=== PATIENT | female | born 1970 | race Caucasian/White ===

== ENCOUNTER 2017-09-20 13:51 | Emergency (ER) | payer BC ==
[~2017-09-20] VITALS: Ht 154.9 cm; Wt 81.0 kg
[~2017-09-20 13:51] MED LIST: ACAI500C2; ATOR10TA82 PO; GLUCPOW41 PO; LEVO1TAB PO; LUTE6CAP; MULTCAP42 PO; NIAC500T8 PO; OMEG10007 PO; RIZA10TA18 PO; RIZA10TA19 PO; UBIQ1CAP8
[2017-09-20 13:53] VITALS: TEMP 36.9; Ht 154.9 cm; Wt 81.0 kg
[2017-09-20] MEDS ORDERED: SODIUM CHLORIDE 0.9% 1000ML 1,000 ML IV STA (14:09)
--- NOTE | 2017-09-20 14:19 | EMERGENCY ROOM VISIT NOTE ---
History First contact with patient: 13:57 Chief Complaint: FLANK PAIN Stated Complaint: PAIN IN RT FLANK KIDNEY STONE History of Present Illness The patient is a 47 year old female who presents to the Emergency Room with complaints of severe right flank pain which began yesterday morning. The patient states she was awoken at approximately 7:30 yesterday morning with extraordinary pain. She states she was fighting to stay conscious due to the pain, and did have vomiting. She states the pain was worse on the right flank, and did radiate to the right lower abdomen. She states this episode lasted for approximately 45 minutes to one hour, then spontaneously improved. The patient states the rest of the day, she was uncomfortable, but the pain was much better. She denies any changes in urinating or bowel movements. She states her bowel movements it seems slightly different than normal. She did note that through the pain, she felt as if she would feel better if she did have a bowel movement, but that was not the case. She describes the pain as sharp and acute , but now reports pain 3/10. She does not have a history of kidney stones, but states her does. She is concerned that this could be the problem. The patient denies any dysuria, urinary hesitancy, or urinary frequency. She denies any blood in the urine. She denies any fever, chills, nausea or vomiting with the exception of during the pain, dizziness, or other concerning symptoms. Review of Systems A complete 10 point review of systems was reviewed with the patient with pertinent positives and negatives as per history of present illness. All else were negative. Past Medical/Surgical History Medical Problems: (1) Hyperlipidemia (2) Hypothyroidism (3) Migraines Family History Diabetes mellitus FH: gallbladder disease FH: heart disease FH: lung disease FHx: cancer Hypertension Social History Smoking Status: Never Smoker Smokeless Tobacco Use: No Alcohol Use: none Drug Use: none Marital Status: Housing Status: lives with family Occupation Status: employed Current/Historical Medications Scheduled Acai ([place]) (Acai Laboy), 1,000 DAILY Atorvastatin (Lipitor), 10 MG PO DAILY Nviomvspiux-Hxrzggrfskj-Oxsbdn (Glucosamine & Chrondroiti), Unknown Dose PO BID Levothyroxine Sodium (Levothyroxine Sodium), 125 MCG PO DAILY Lutein (Lutein), DAILY Multiple Vitamin (Multivitamins), 1 CAP PO BID Rizatriptan Benzoate (Maxalt), 10 MG PO PRB/UD Tamsulosin Hcl (Flomax), 0.4 MG PO QD Ubiquinol (Ubiquinol), 100 MG PO DAILY Scheduled PRN Ondasetron Odt (Zofran Odt), 4 MG SL Q6H PRN for Nausea Oxycodone Ir (Roxicodone Ir), 1 TAB PO Q4H PRN for Pain Allergies None Physical Exam Vital Signs Date Time Temp Pulse Resp B/P (MAP) Pulse Ox O2 Delivery O2 Flow Rate FiO2 09/20/17 16:47 80 16 128/74 97 09/20/17 14:34 72 18 116/78 98 Room Air 09/20/17 13:53 36.9 96 18 126/81 97 Room Air Physical Exam VITALS: Vitals are noted on the nurse's note and reviewed by myself. Vital signs stable. GENERAL: This is a 47-year-old white female, in no acute distress, nondiaphoretic, well-developed well-nourished. SKIN: The skin was without rashes, erythema, edema, or bruising. There is no tenting of the skin. Capillary reflex less than 2 seconds. HEAD: Normocephalic atraumatic. NECK: Supple without nuchal rigidity. No lymphadenopathy. No thyromegaly. Cervical spine is nontender. No JVD. HEART: Regular rate and rhythm without murmurs gallops or rubs. LUNGS: Clear to auscultation bilaterally without wheezes, rales or rhonchi. No dullness to percussion. No retractions or accessory muscle use. ABDOMEN: Positive bowel sounds x 4. Normal tympanic percussion. Tenderness noted suprapubically, worse on the right. The patient does have some low right flank pain, but no left flank pain. Soft, without masses or organomegaly. Garcia sign negative. No guarding or rebound tenderness. MUSCULOSKELETAL: No muscle atrophy, erythema, or edema noted. Full range of motion without joint tenderness in all extremities. No tenderness to palpation. Normal gait. Strength 5/5 throughout. NEURO: Patient was alert and oriented to person place and time. Normal sensation to light and sharp touch. No focal neurological deficits. Medical Decision & Procedures ER Provider Diagnostic Interpretation: CBC showed mild leukocytosis of 12,000. Initial urinalysis was positive for 2+ blood, leukocytes trace, white blood cells, red blood cells, greater than 30 epithelial cells, and 1+ bacteria. Positive for calcium oxalate crystals. Repeat urinalysis was negative for bacteria, leukocyte esterase, white blood cells, and had only 5-10 epithelial cells. Renal function was without significant electrolyte or hepatic abnormalities. ABD/PELVIS WITHOUT FOR STONE HISTORY: 47 years-old Female right flank pain acute right-sided flank pain with concern for kidney stones COMPARISON: None available TECHNIQUE: Multiple axial CT images of the abdomen and pelvis were obtained without contrast. A dose lowering technique was used consistent with the principals of ISELA. FINDINGS: The lung bases are generally clear. No pneumoperitoneum or pneumatosis. Imaged inferior cardiac chambers are unremarkable. The liver, gallbladder, spleen, pancreas and adrenal glands are unremarkable. There is a 4 x 2 x 4 mm calculus of the right proximal ureter proximally 1.5 cm distal to the ureteropelvic junction the level of L3 which causes mild hydroureteronephrosis. The left kidney and left ureter are unremarkable. Urinary bladder is within normal limits. Fibroid uterus noted with a pedunculated or subserosal fibroid seen in the left fundal uterus measuring 3.2 x 4.5 cm. Follicular changes of the ovaries are noted. There are focal bullous of the pelvis. Abdominal aorta is normal in course and caliber. No bulky adenopathy. There is no bowel obstruction or focal bowel wall thickening identified. The appendix measures 6 mm, however appears noninflamed. Patient obesity noted. The bones appear intact. IMPRESSION: 1. 4 x 2 x 4 mm calculus of the proximal right ureter at the level of L3 causes mild hydroureteronephrosis. 2. Fibroid uterus. The above report was generated using voice recognition software. It may contain grammatical, syntax or spelling errors. Electronically signed by: Steve Buenrostro M.D. 09/20/2017 3:23 PM Dictated Date/Time: 09/20/2017 3:17 PM Laboratory Results 09/20/17 14:26 Red Blood Count 4.60, Mean Corpuscular Volume 89.8, Mean Corpuscular Hemoglobin 30.0, Mean Corpuscular Hemoglobin Concent 33.4, Mean Platelet Volume 9.7, Neutrophils (%) (Auto) 59.8, Lymphocytes (%) (Auto) 30.8, Monocytes (%) (Auto) 6.7, Eosinophils (%) (Auto) 1.9, Basophils (%) (Auto) 0.3, Neutrophils # (Auto) 7.37, Lymphocytes # (Auto) 3.80, Monocytes # (Auto) 0.82, Eosinophils # (Auto) 0.24, Basophils # (Auto) 0.04 09/20/17 14:26 Test 09/20/17 14:26 White Blood Count 12.33 K/uL (4.8-10.8) Red Blood Count 4.60 M/uL (4.2-5.4) Hemoglobin 13.8 g/dL (12.0-16.0) Hematocrit 41.3 % (37-47) Mean Corpuscular Volume 89.8 fL (80-100) Mean Corpuscular Hemoglobin 30.0 pg (25-34) Mean Corpuscular Hemoglobin Concent 33.4 g/dl (32-36) Platelet Count 278 K/uL (130-400) Mean Platelet Volume 9.7 fL (7.4-10.4) Neutrophils (%) (Auto) 59.8 % Lymphocytes (%) (Auto) 30.8 % Monocytes (%) (Auto) 6.7 % Eosinophils (%) (Auto) 1.9 % Basophils (%) (Auto) 0.3 % Neutrophils # (Auto) 7.37 K/uL (1.4-6.5) Lymphocytes # (Auto) 3.80 K/uL (1.2-3.4) Monocytes # (Auto) 0.82 K/uL (0.11-0.59) Eosinophils # (Auto) 0.24 K/uL (0-0.5) Basophils # (Auto) 0.04 K/uL (0-0.2) RDW Standard Deviation 47.1 fL (36.4-46.3) RDW Coefficient of Variation 14.4 % (11.5-14.5) Immature Granulocyte % (Auto) 0.5 % Immature Granulocyte # (Auto) 0.06 K/uL (0.00-0.02) Urine Color YELLOW Urine Appearance CLOUDY (CLEAR) Urine pH 5.5 (4.5-7.5) Urine Specific [place] 1.025 (1.000-1.030) Urine Protein NEG (NEG) Urine Glucose (UA) NEG (NEG) Urine Ketones NEG (NEG) Urine Occult Blood 2+ (NEG) Urine Nitrite NEG (NEG) Urine Bilirubin NEG (NEG) Urine Urobilinogen NEG (NEG) Urine Leukocyte Esterase TRACE (NEG) Urine WBC (Auto) 5-10 /hpf (0-5) Urine RBC (Auto) 0-4 /hpf (0-4) Urine Hyaline Casts (Auto) 5-10 /lpf (0-5) Urine Epithelial Cells (Auto) >30 /lpf (0-5) Urine Bacteria (Auto) 1+ (NEG) Urine Crystals CALCIUM OXALATE (NONE Anion Gap 10.0 mmol/L (3-11) Est Creatinine Clear Calc Drug Dose 97.9 ml/min Estimated GFR () 119.6 Estimated GFR (Non- 103.2 BUN/Creatinine Ratio 20.5 (10-20) Calcium Level 8.5 mg/dl (8.5-10.1) Medications Administered Medications (Trade) Dose Ordered Sig/Eliezer Route Start Time Stop Time Status Last Admin Dose Admin Sodium Chloride 1,000 ml @ 999 mls/hr Q1H1M STAT IV 09/20/17 14:09 09/20/17 15:09 DC 09/20/17 14:34 999 MLS/HR Medical Decision The patient was seen and evaluated as above. She presented today complaining of severe, colicky right flank pain. The patient states the pain at this time is not severe, but she has been experiencing intermittent episodes of extraordinary pain. Labs, urinalysis, and imaging studies were concerning for nephrolithiasis. There was a 4 mm ureteral stone noted on CT scan. Initial urinalysis was concerning for possible infection, but repeat urinalysis was without these concerning findings. While in the ED, the patient was given 1 L normal saline solution bolus. I did offer pain medication and she declines. I discussed the he findings of all testing with the patient and her at bedside. I discussed proper management of kidney stones. The patient verbalizes understanding, and states that while she does not feel that she will use pain medication or Flomax, she will take these prescriptions in the case that she may need them. The case was discussed with Dr. Campbell who was in agreement with the assessment and plan. Discharge instructions were reviewed and the patient was discharged home in good condition. Differential diagnosis includes ureteral stone, nephrolithiasis, hydronephrosis , pyelonephritis, UTI, malignancy, and others [place] Drug Monitoring Program Search Results: patient reviewed within database Drug Monitoring Findings: No concerning findings noted Medication Reconcilliation Current Medication List: was personally reviewed by me Blood Pressure Screening Patient's blood pressure: Normal blood pressure Impression Primary Impression: Ureteral calculi Departure Information Dispostion Home / Self-Care Condition GOOD Prescriptions Ondasetron Odt (ZOFRAN ODT) 4 Mg Tab 4 MG SL Q6H Y for Nausea, #6 TAB Prov: Justine Lugo PA-C 09/20/17 Tamsulosin Hcl (FLOMAX) 0.4 Mg Cap 0.4 MG PO QD for 6 Days, #6 CAP Prov: Justine Lugo PA-C 09/20/17 Oxycodone Ir (Roxicodone Ir) 5 Mg Tab 1 TAB PO Q4H Y for Pain, #15 TAB For Initial Treatment Prov: Justine Lguo PA-C 09/20/17 Referrals No Doctor, Assigned (PCP) Shiv Smallwood MD Patient Instructions ED Stone Renal W Colic, Kidney Stones Prevent, My [facility] Additional Instructions You have been treated in the Emergency Department today for a Kidney Stone ( Nephrolithiasis). You have been prescribed OxyIR to be used for pain control. This is a narcotic medication. You cannot drive or consume alcohol while on this medicine. This medicine should only be used for pain that cannot be controlled with over-the- counter pain medicines. You have been prescribed Zofran to be used for any nausea or vomiting. Take as prescribed. You have been prescribed Flomax 0.4 mg to be taken ONCE daily. This medicine has been prescribed as it can help relax the smooth muscles of the urinary tract increasing transit time of the kidney stone. For pain control, you can use the following [id number] medicines (if >12 yo): Ibuprofen(Motrin, Advil) may be used for fever or pain. Use 600mg every six hours as needed. Take with food. Avoid using more than 2400mg in a 24 hour period. Do not use 2400mg per day for more than three consecutive days without physician direction. Prolonged inappropriate use can lead to stomach upset or ulcers. (AND/OR) Acetaminophen(Tylenol) may be used for fever or pain. Use 1000mg every six hours as needed. Avoid using more than 3000mg in a 24 hour period. You have been provided a strainer and specimen collection cup. You should strain your urine to collect any passed stones. Your stones can be placed into the specimen cup and taken to your Urologist for further evaluation. You have been provided the contact information for the on-call Urologist. You should contact the Urologist's office if no improvement in 2-3 days to establish a follow-up appointment from today's Emergency Department visit. Please follow up with your PCP and went to 2 days for recheck and further evaluation. Return to the Emergency Department if your symptoms persist despite the treatment plan outlined above or if you develop the following symptoms: intractable pain, fever, chills, or large amounts of blood in your urine.
[2017-09-20 14:38] LABS: BASO % 0.3 %; BASO ABS # 0.04 K/uL (0-0.2); COMPLETE YES; EOS % 1.9 %; HEMATOCRIT 41.3 % (37-47); IG% 0.5 %; LYMPH % 30.8 %; MEAN CELL VOLUME 89.8 fL (80-100); MEAN CORPUSCULAR HGB CONC 33.4 g/dl (32-36); MEAN PLATELET VOLUME 9.7 fL (7.4-10.4); MONO % 6.7 %; NEUT % 59.8 %; PLATELET COUNT 278 K/uL (130-400); WHITE BLOOD COUNT 12.33 K/uL (4.8-10.8)
[2017-09-20 14:40] LABS: MANUAL MICROSCOPIC REQUIRED? NO; REVIEW REQ? YES; URINE APPEARANCE CLOUDY (CLEAR); URINE BILIRUBIN NEG (NEG); URINE COLOR YELLOW; URINE EPITHELIAL CELL AUTO >30 /lpf (0-5); URINE NITRITE NEG (NEG); URINE PH 5.5 (4.5-7.5); URINE SPECIFIC GRAVITY 1.025 (1.000-1.030); UROBILINOGEN NEG (NEG); ZZUR CULT IF INDIC CLEAN CATCH YES
[2017-09-20 15:03] LABS: BLOOD UREA NITROGEN 14 mg/dl (7-18); BUN/CREATININE RATIO 20.5 (10-20); CALCIUM 8.5 mg/dl (8.5-10.1); CARBON DIOXIDE 20 mmol/L (21-32); CHLORIDE 107 mmol/L (98-107); CREATININE 0.67 mg/dl (0.60-1.20); GLUCOSE 80 mg/dl (70-99); SODIUM 137 mmol/L (136-145)
--- NOTE | 2017-09-20 15:24 | DIAGNOSTIC IMAGING REPORT ---
ABD/PELVIS WITHOUT FOR STONE HISTORY: 47 years-old Female right flank pain acute right-sided flank pain with concern for kidney stones COMPARISON: None available TECHNIQUE: Multiple axial CT images of the abdomen and pelvis were obtained without contrast. A dose lowering technique was used consistent with the principals of ALARA. FINDINGS: The lung bases are generally clear. No pneumoperitoneum or pneumatosis. Imaged inferior cardiac chambers are unremarkable. The liver, gallbladder, spleen, pancreas and adrenal glands are unremarkable. There is a 4 x 2 x 4 mm calculus of the right proximal ureter proximally 1.5 cm distal to the ureteropelvic junction the level of L3 which causes mild hydroureteronephrosis. The left kidney and left ureter are unremarkable. Urinary bladder is within normal limits. Fibroid uterus noted with a pedunculated or subserosal fibroid seen in the left fundal uterus measuring 3.2 x 4.5 cm. Follicular changes of the ovaries are noted. There are focal bullous of the pelvis. Abdominal aorta is normal in course and caliber. No bulky adenopathy. There is no bowel obstruction or focal bowel wall thickening identified. The appendix measures 6 mm, however appears noninflamed. Patient obesity noted. The bones appear intact. IMPRESSION: 1. 4 x 2 x 4 mm calculus of the proximal right ureter at the level of L3 causes mild hydroureteronephrosis. 2. Fibroid uterus. The above report was generated using voice recognition software. It may contain grammatical, syntax or spelling errors. Electronically signed by: Steve Buenrostro M.D. 09/20/2017 3:23 PM Dictated Date/Time: 09/20/2017 3:17 PM
[2017-09-20] MEDS ORDERED: TAMS0.4C38 PO (16:03)
[2017-09-20] MEDS ORDERED: ONDA4TAB10 SL (16:03)
[2017-09-20] MEDS ORDERED: OXYC1TAB3 PO (16:03)
[2017-09-20] MEDS ORDERED: LEVO125T5 PO (16:09)
[2017-09-20] MEDS ORDERED: UBIQ1CAP8 PO (16:14)
[2017-09-20 16:27] LABS: URINE APPEARANCE CLEAR (CLEAR); URINE BILIRUBIN NEG (NEG); URINE COLOR YELLOW; URINE NITRITE NEG (NEG); URINE SPECIFIC GRAVITY 1.012 (1.000-1.030); UROBILINOGEN NEG (NEG)
[2017-09-20 16:32] LABS: MANUAL MICROSCOPIC REQUIRED? NO; REVIEW REQ? NO
[2017-09-20 16:47] VITALS: BP 128/74; PULSE 80; O2SAT 97
== END 2017-09-20 16:49 | disposition home or self-care (01) ==
LOC: C.EDB 13:52
DX: N20.1 Calculus of ureter (principal); E78.5 Hyperlipidemia, unspecified; E03.9 Hypothyroidism, unspecified; Z79.899 Other long term (current) drug therapy; Z83.3 Family history of diabetes mellitus; Z83.79 Family history of other diseases of the digestive system; Z82.49 Family history of ischemic heart disease and other diseases of the circulatory system; Z80.9 Family history of malignant neoplasm, unspecified

== ENCOUNTER → 2017-09-30 | Outpatient (CLI) | payer BC ==
[~2017-09-30] MED LIST changes: +LEVO125T5 PO; -LEVO1TAB PO; -NIAC500T8 PO; -OMEG10007 PO; +ONDA4TAB10 SL; +OXYC1TAB3 PO; -RIZA10TA19 PO; -UBIQ1CAP8; +UBIQ1CAP8 PO
--- NOTE | 2017-10-01 13:36 | MAMMOGRAPHY REPORT ---
BILATERAL DIGITAL SCREENING MAMMOGRAM TOMOSYNTHESIS WITH CAD: 09/30/2017 CLINICAL HISTORY: Routine screening. Patient has no complaints. TECHNIQUE: Breast tomosynthesis in addition to standard 2D mammography was performed. Current study was also evaluated with a Computer Aided Detection (CAD) system. COMPARISON: Comparison is made to exams dated: 09/29/2016 mammogram, 09/26/2015 mammogram, 09/25/2014 m ammogram, 08/24/2013 mammogram, 08/22/2012 mammogram, and 08/19/2011 mammogram - [facility]. BREAST COMPOSITION: There are scattered areas of fibroglandular density in both breasts. FINDINGS: No suspicious masses, calcifications, or areas of architectural distortion are noted in ei ther breast. There has been no significant interval change compared to prior exams. IMPRESSION: ACR BI-RADS CATEGORY 1: NEGATIVE There is no mammographic evidence of malignancy. A 1 year screening mammogram is recommended. The pa tient will receive written notification of the results. Approximately 10% of breast cancers are not detected with mammography. A negative mammographic report should not delay biopsy if a clinically suggestive mass is present. Natalya Eugene M.D. ah/:09/30/2017 15:37:59 Printing Manager: Rima DANIEL(Sidra)(M), [facility] letter sent: Normal 1/2 BI-RADS Code: ACR BI-RADS Category 1: Negative
== END | disposition home or self-care (01) ==
LOC: C.MAMM 11:46
PROVIDERS: ATTEND Internal Medicine
DX: Z12.31 Encounter for screening mammogram for malignant neoplasm of breast (principal)

== ENCOUNTER 2017-11-10 16:34 | Emergency (ER) | payer OTHER ==
[~2017-11-10] VITALS: Ht 157.5 cm; Wt 82.5 kg
[~2017-11-10 16:34] MED LIST changes: -CEPH-571 PO; -ONDA4TAB65 PO; -TAMS0.4C38 PO
[2017-11-10 16:43] VITALS: TEMP 36.7; Ht 157.5 cm; Wt 82.5 kg
[2017-11-10] MEDS ORDERED: CEPH-571 PO (18:19)
[2017-11-10] MEDS ORDERED: TAMS0.4C38 PO (18:19)
[2017-11-10] MEDS ORDERED: OXYC1TAB3 PO (18:20)
[2017-11-10] MEDS ORDERED: CEPHALEXIN MONOHYDRATE 250 MG CAP PO ONE (18:30)
[2017-11-10] MEDS ORDERED: TAMSULOSIN HCL 0.4 MG CAP PO ONE (18:30)
[2017-11-10] MEDS ORDERED: ONDA4TAB65 PO (18:46)
[2017-11-10 18:47] VITALS: BP 132/79; PULSE 76; O2SAT 99
--- NOTE | 2017-11-10 19:31 | EMERGENCY ROOM VISIT NOTE ---
History Report prepared by Tahir: Les Orellana Under the Supervision of: Dr. Hubert Campbell D.O. First contact with patient: 16:49 Chief Complaint: KIDNEY STONE Stated Complaint: REF BY DR-KIDNEY STONE History of Present Illness The patient is a 47 year old female who presents to the Emergency Room with complaints of persistent kidney stone since September 19, 2017. She was seen in the ED at that time and had a CT scan that revealed a 4 mm stone in her right ureter. She notes that she was discharged home with the expectation that the stone would pass. She notes her pain went away by September 25, 2017, though has returned this morning. She notes right-side abdominal pain was severe this morning. She also notes nausea and she took anti-nausea medication this morning. She states that went to her PCP this morning and had another CT, which showed a 7mm stone obstructing her right ureter. She was advised to come to the ED for evaluation. Pt denies fevers, chest pain, shortness of breath, vomiting, diarrhea, and pain with urination. Patient currently has absolutely no pain. She is not taking any narcotics. She does have Flomax at home. She also has OxyIR at home which she has not taken. She does not like to take medications. Source of History: patient Onset: September 19, 2017 Position: other (global ) Symptom Intensity: severe Quality: other (kidney stone) Timing: other (persistent) Associated Symptoms: + nausea, + abdominal pain (right-side ), No fevers, No chest pain, No SOB, No vomiting, No diarrhea, No urinary symptoms (no pain with urination) Review of Systems See HPI for pertinent positives & negatives. A total of 10 systems reviewed and were otherwise negative. Past Medical & Surgical Medical Problems: (1) Hyperlipidemia (2) Hypothyroidism (3) Migraines Family History Diabetes mellitus FH: gallbladder disease FH: heart disease FH: lung disease FHx: cancer Hypertension Social History Smoking Status: Never Smoker Alcohol Use: none Drug Use: none Marital Status: Housing Status: lives with family Occupation Status: employed Current/Historical Medications Scheduled Acai ([place]) (Acai Laboy), 1,000 DAILY Atorvastatin (Lipitor), 10 MG PO DAILY Cephalexin (Keflex), 1 CAP PO TID Vkasuznyrqu-Xgmwewjzwws-Xzsrhm (Glucosamine & Chrondroiti), Unknown Dose PO BID Levothyroxine Sodium (Levothyroxine Sodium), 125 MCG PO DAILY Lutein (Lutein), DAILY Multiple Vitamin (Multivitamins), 1 CAP PO BID Ondansetron Hcl (Zofran), 4 MG PO TID Rizatriptan Benzoate (Maxalt), 10 MG PO PRB/UD Tamsulosin Hcl (Flomax), 0.4 MG PO DAILY Ubiquinol (Ubiquinol), 100 MG PO DAILY Scheduled PRN Oxycodone Immediate Rel Tab (Roxicodone Ir), 5 MG PO Q6H PRN for Pain Allergies Coded Allergies: No Known Allergies (Unverified , 11/10/17) Physical Exam Vital Signs Date Time Temp Pulse Resp B/P (MAP) Pulse Ox O2 Delivery O2 Flow Rate FiO2 11/10/17 18:47 76 20 132/79 99 Room Air 11/10/17 16:43 36.7 88 18 137/85 97 Room Air Physical Exam GENERAL: Sitting up in bed, alert, well appearing, well nourished, no distress, non-toxic EYE EXAM: normal conjunctiva. OROPHARYNX: no exudate, no erythema, lips, buccal mucosa, and tongue normal and mucous membranes are moist NECK: supple, no nuchal rigidity, no adenopathy, non-tender LUNGS: Clear to auscultation. Normal chest wall mechanics HEART: no murmurs, S1 normal and S2 normal ABDOMEN: abdomen soft, non-tender, normo-active bowel sounds, no masses, no rebound or guarding. BACK: Back is symmetrical on inspection and there is no deformity, no midline tenderness, no CVA tenderness. SKIN: no rashes and no bruising UPPER EXTREMITIES: upper extremities are grossly normal. LOWER EXTREMITIES: No pitting edema. NEURO EXAM: Normal sensorium, cranial nerves II-XII grossly intact, normal speech, no gross weakness of arms, no gross weakness of legs. Medical Decision & Procedures Laboratory Results Test 11/10/17 17:28 Urine Color YELLOW Urine Appearance CLEAR (CLEAR) Urine pH 5.5 (4.5-7.5) Urine Specific [place] 1.010 (1.000-1.030) Urine Protein NEG (NEG) Urine Glucose (UA) NEG (NEG) Urine Ketones NEG (NEG) Urine Occult Blood 1+ (NEG) Urine Nitrite NEG (NEG) Urine Bilirubin NEG (NEG) Urine Urobilinogen NEG (NEG) Urine Leukocyte Esterase NEG (NEG) Urine WBC (Auto) 1-5 /hpf (0-5) Urine RBC (Auto) 0-4 /hpf (0-4) Urine Hyaline Casts (Auto) 0 /lpf (0-5) Urine Epithelial Cells (Auto) 10-20 /lpf (0-5) Urine Bacteria (Auto) NEG (NEG) Laboratory results per my review. Medications Administered Medications (Trade) Dose Ordered Sig/Eliezer Route Start Time Stop Time Status Last Admin Dose Admin Cephalexin Monohydrate (Keflex Cap) 500 mg NOW ONCE PO 11/10/17 18:30 11/10/17 18:31 DC 11/10/17 18:35 500 MG Tamsulosin HCl (Flomax Cap) 0.4 mg NOW ONCE PO 11/10/17 18:30 18 18:31 DC 11/10/17 18:34 0.4 MG ED Course ED COURSE: Vital signs were reviewed and showed normal. The patients medical record was reviewed The above diagnostic studies were performed and reviewed. ED treatments and interventions as stated above. 165: The patient was evaluated in room C5. A complete history and physical examination was performed. 0: I spoke with Dr. Norris, urologist. We discussed the patients case. He will follow up with her as an outpatient. He recommends Flomax. 1830: Ordered Flomax 0.4 mg PO and Keflex 500 mg PO 1823: Upon reevaluation, I discussed my findings with the patient and she understands and agrees with the treatment plan. Based on the patients age, coexisting illnesses, exam and lab findings the decision to treat as an outpatient was made. The patient remained stable while under my care. The patient appeared well at the time of discharge. Medical Decision Differential diagnoses includes but is not limited to gastritis, peptic ulcer disease, GERD, gallbladder disease, pancreatitis, small bowel obstruction, acute coronary syndrome, pericarditis, ischemic bowel, irritable bowel disease, irritable bowel syndrome, appendicitis, diverticulitis, malignancy, hernia, urinary tract infection, torsion, /ectopic (if female), perforation, trauma, infectious. Patient is a 47-year-old female referred in by PCP for right flank pain. This started this morning. She does have a history of a previous one kidney stone back in August. She had blood work and CT done this morning. Blood work showed a mild leukocytosis. BMP all LFTs, bilirubin was unremarkable. UA obtained here shows no signs of infection. She did have a mild leukocytosis which I do favor secondary to the vomiting which she had earlier this morning. She is referred in for possible intervention by her PCP. Following the results of the urine she rested comfortably in the ER. She took no narcotics at home. She did not want any narcotics while in the ER as she was comfortable. I discussed the case with Dr. Norris from urology per her request as she would like to be with [facility] group as her follows with them as well. Reviewed the imaging studies labs and UA. He recommends following up as an outpatient and I agree that she is well enough to be discharged. Patient was discharged with Keflex after discussion with Dr. Norris. This was ordered secondary to the leukocytosis although I favor this is likely to the vomiting. She was also given Flomax and OxyIR. PDMP was unremarkable. Patient was discharged with Zofran as well. She was updated at bedside. They're extremely concerned in regards to being discharged and noted that if anything happens to her kidney function I can expect a lawsuit. I explained at length that I reviewed my findings with the specialist and was following the recommendations as she is completely pain-free at this time without any narcotics. Patient was discharged pain free without fevers with normal vital signs and normal UA. She' ll call urology tomorrow to set up an appointment as an outpatient. Discussed with Pt concerning signs and symptoms to watch out for. Pt was instructed to follow up with their PCP and discussed with the patient their option to return to the ED at anytime for persistent or worsening symptoms. The appropriate anticipatory guidance and out-patient management, including indications for return to the emergency department, were explained at length to the patient and understood. [place] Drug Monitoring Program Search Results: no issues identified Medication Reconcilliation Current Medication List: was personally reviewed by me Blood Pressure Screening Patient's blood pressure: Normal blood pressure Consults Time Called: 1800 Consulting Physician: Dr. Norris, urologist Returned Call: [address] Norris, urologist. We discussed the patients case. He will follow up with her as an outpatient. He recommends Flomax. Impression Primary Impression: Renal colic Additional Impression: Hydronephrosis Scribe Attestation The scribe's documentation has been prepared under my direction and personally reviewed by me in its entirety. I confirm that the note above accurately reflects all work, treatment, procedures, and medical decision making performed by me. Departure Information Dispostion Home / Self-Care Prescriptions Ondansetron Hcl (ZOFRAN) 4 Mg Tab 4 MG PO TID for Nausea, #30 TAB Prov: Hubert Campbell, DO 11/10/17 Oxycodone Immediate Rel Tab (ROXICODONE IR) 5 Mg Tab 5 MG PO Q6H Y for Pain, #10 TAB Prov: Hubert Campbell, DO 11/10/17 Cephalexin (KEFLEX) 500 Mg Cap 1 CAP PO TID for 3 Days, #9 CAP Prov: Hubert Campbell, DO 11/10/17 Tamsulosin Hcl (FLOMAX) 0.4 Mg Cap 0.4 MG PO DAILY, #10 CAP Prov: Hubert Campbell, DO 11/10/17 Referrals No Doctor, Assigned (PCP) Forms HOME CARE DOCUMENTATION FORM, IMPORTANT VISIT INFORMATION Patient Instructions My [facility] Additional Instructions Please follow up with your primary care doctor with in the next 24 hours. Any worsening of your symptoms, please return to the ED immediately. This includes any fevers greater than 100.4, worsening pain, chest pain, shortness breath, persistent nausea, vomiting, unable to eat or drink, or any other concerning signs or symptoms from your standpoint. You were given medications during this visit that will inhibit your ability to drive, operate machinery and work when you take them (Oxy IR). Please do NOT drive, operate machinery or work within 12hrs of taking this medication. Your found to have a 7 mm kidney stone in your right proximal ureter. Please call urology tomorrow morning to have a follow up appointment. Any worsening of your pain or fevers of 100.4 you need to return immediately to the ER. Please take OxyIR as prescribed for pain. Please take Flomax as prescribed to help dilate your ureter and hopefully passed stone quicker. Please take Zofran as needed for nausea/vomiting. Problem Qualifiers Additional Impression: Hydronephrosis Hydronephrosis type: with renal calculous obstruction Qualified Codes: N13.2 - Hydronephrosis with renal and ureteral calculous obstruction
== END 2017-11-10 18:52 | disposition home or self-care (01) ==
LOC: C.EDB 16:37 → C.EDC 18:52
DX: N13.2 Hydronephrosis with renal and ureteral calculous obstruction (principal); E03.9 Hypothyroidism, unspecified; R10.9 Unspecified abdominal pain; R11.0 Nausea; Z79.899 Other long term (current) drug therapy; E78.5 Hyperlipidemia, unspecified

== ENCOUNTER → 2017-11-10 | Outpatient (CLI) | payer OTHER ==
[~2017-11-10] MED LIST changes: +CEPH-571 PO; +ONDA4TAB65 PO; +TAMS0.4C38 PO
--- NOTE | 2017-11-10 16:07 | DIAGNOSTIC IMAGING REPORT ---
CT SCAN OF THE ABDOMEN AND PELVIS WITHOUT IV CONTRAST CLINICAL HISTORY: Right lower quadrant abdominal pain. COMPARISON STUDY: Abdominal CT dated 09/20/2017. TECHNIQUE: CT scan of the abdomen and pelvis is performed from the lung bases to the proximal femora. Images are reviewed in the axial, sagittal, and coronal planes. IV contrast was not administered for this examination as per the referring clinician. A dose lowering technique was utilized adhering to the principles of ALARA. CT DOSE: 1244.10 mGy.cm FINDINGS: Lung bases: The heart is normal in size and without pericardial effusion. The lung bases are clear. Liver: The unenhanced liver is enlarged, measuring 20 cm in length. The liver demonstrates diffusely diminished attenuation consistent with hepatic steatosis. Fatty sparing is seen adjacent to the gallbladder fossa. There is no intrahepatic biliary ductal dilatation. Gallbladder: Unremarkable. Spleen: Normal in size and attenuation. Pancreas: Unremarkable. Adrenal glands: Unremarkable. Kidneys: The unenhanced kidneys are normal in size. There is a 7 mm obstructing calculus in the right proximal ureter at the level of L3. This causes mild to moderate right hydronephrosis. No additional calculi are identified in either kidney. There is no left-sided hydronephrosis. There is no evidence of contour deforming renal mass lesion. Abdominal vasculature: The abdominal aorta is normal in course and caliber. Bowel: The small bowel and colon are normal in course and caliber. The appendix is well-visualized and normal. Peritoneum: There is no intraperitoneal free air or abdominal ascites. There is a small fat-containing umbilical hernia. Lymphadenopathy: None. Pelvic viscera: The bladder is normal as visualized. Uterine fibroids are suspected. There are bilateral ovarian follicles. Skeletal structures: No lytic or blastic lesions are seen. IMPRESSION: 1. There is a 7 mm obstructing calculus in the right proximal ureter. This causes mild to moderate right hydronephrosis. 2. No additional calculi are identified in either kidney. 3. Hepatomegaly and hepatic steatosis. 4. Fibroid uterus. Electronically signed by: Shaun Bautista M.D. 11/10/2017 4:05 PM Dictated Date/Time: 11/10/2017 3:59 PM
[2017-11-10 16:44] LABS: BASO % 0.2 %; BASO ABS # 0.03 K/uL (0-0.2); EOS % 0.2 %; EOS ABS # 0.03 K/uL (0-0.5); HEMATOCRIT 41.6 % (37-47); HEMOGLOBIN 14.2 g/dL (12.0-16.0); IG# 0.06 K/uL (0.00-0.02); LYMPH % 18.1 %; LYMPH ABS # 2.79 K/uL (1.2-3.4); MEAN CELL VOLUME 89.1 fL (80-100); MEAN CORPUSCULAR HEMOGLOBIN 30.4 pg (25-34); MEAN CORPUSCULAR HGB CONC 34.1 g/dl (32-36); MEAN PLATELET VOLUME 10.1 fL (7.4-10.4); MONO % 3.4 %; MONO ABS # 0.52 K/uL (0.11-0.59); NEUT % 77.7 %; NEUT ABS # 12.02 K/uL (1.4-6.5); PLATELET COUNT 294 K/uL (130-400); RED CELL DISTRIBUTION WIDTH CV 14.2 % (11.5-14.5); RED CELL DISTRIBUTION WIDTH SD 46.1 fL (36.4-46.3); WHITE BLOOD COUNT 15.45 K/uL (4.8-10.8)
[2017-11-10 17:08] LABS: ALBUMIN 3.8 gm/dl (3.4-5.0); ALT/SGPT 24 U/L (12-78); AST/SGOT 16 U/L (15-37); BLOOD UREA NITROGEN 12 mg/dl (7-18); CALCIUM 8.8 mg/dl (8.5-10.1); CARBON DIOXIDE 23 mmol/L (21-32); CREATININE 0.69 mg/dl (0.60-1.20); GLUCOSE 86 mg/dl (70-99); POTASSIUM 3.5 mmol/L (3.5-5.1); SODIUM 136 mmol/L (136-145)
[2017-11-10 17:13] LABS: ALKALINE PHOSPHATASE 76 U/L (45-117); TOTAL PROTEIN 8.2 gm/dl (6.4-8.2)
== END | disposition home or self-care (01) ==
LOC: C.CTS 15:34
PROVIDERS: ATTEND Nurse Practitioner
DX: R10.31 Right lower quadrant pain (principal); N20.1 Calculus of ureter; R16.0 Hepatomegaly, not elsewhere classified; K76.0 Fatty (change of) liver, not elsewhere classified; D25.9 Leiomyoma of uterus, unspecified

== ENCOUNTER → 2017-11-15 | Outpatient (CLI) | payer OTHER ==
[~2017-11-15] MED LIST changes: -ONDA4TAB10 SL; +ONDA4TAB65 PO; +TAMS0.4C38 PO
--- NOTE | 2017-11-15 14:42 | DIAGNOSTIC IMAGING REPORT ---
KUB CLINICAL HISTORY: Nephrolithiasis. Right ureteral stone. FINDINGS: 2 AP supine abdominal radiographs are correlated with abdominal CT dated 11/10/2017. There is a nonobstructed abdominal bowel gas pattern noting moderate colonic fecal retention. A 6 mm calculus is present in the right proximal ureter located just below the transverse process of L2. No additional calculi are clearly identified in either kidney. Pelvic phleboliths are noted. The bony structures appear intact. IMPRESSION: A 6 mm right proximal ureteral calculus projects below the transverse process of L2. Electronically signed by: Shaun Bautista M.D. 11/15/2017 2:41 PM Dictated Date/Time: 11/15/2017 2:39 PM
--- NOTE | 2017-11-15 14:43 | DIAGNOSTIC IMAGING REPORT ---
CHEST 2 VIEWS ROUTINE CLINICAL HISTORY: Preoperative evaluation. Nephrolithiasis. COMPARISON STUDY: Chest radiograph September 07, 2014. FINDINGS: Lung volumes are normal. Slight elevation/infiltration of the right hemidiaphragm is unchanged. There is no evidence for pulmonary edema. There is no consolidation. Cardiomediastinal silhouette is normal. IMPRESSION: No acute cardiopulmonary findings. Electronically signed by: Nima Ford M.D. 11/15/2017 2:41 PM Dictated Date/Time: 11/15/2017 2:40 PM
== END | disposition home or self-care (01) ==
LOC: C.CPL 14:09
PROVIDERS: ATTEND Nurse Practitioner Adult Health
DX: N20.2 Calculus of kidney with calculus of ureter (principal)

== ENCOUNTER → 2017-11-19 | Day surgery (SDC) | payer OTHER ==
[2017-11-17 12:46] VITALS: Ht 157.5 cm; Wt 80.9 kg
[~2017-11-19] VITALS: Ht 157.5 cm; Wt 80.9 kg
[~2017-11-19] MED LIST changes: +ATROPINE SULFATE 0.1 MG/ML 5ML SYR IV PRN; +CEPH500C2 PO; +CIPROFLOXACIN 400MG / D5W IV SCH; +DEXAMETHASONE SOD INJ 4 MG/ML VIAL IV PRN; +DEXAMETHASONE SOD INJ 4 MG/ML VIAL ONE; +EpHEDrine SULFATE INJ 50 MG/ML AMP IV PRN; +FENTANYL CITRATE INJ 50 MCG/1 ML 2 ML VIAL IV PRN; +FENTANYL CITRATE INJ 50 MCG/1 ML 2 ML VIAL ONE; +FLM4; +IBUP-103 PO; +KETOROLAC TROMETHAMINE 30 MG/ML VIAL IV. PRN; +KETOROLAC TROMETHAMINE 30 MG/ML VIAL ONE; +LABETALOL HCL IV 5 MG/ML 20ML IV PRN; +LACTATED RINGER'S 1000ML 1,000 ML IV SCH; +LIDOCAINE HCL 2% 2 ML VIAL (20MG/ML) ONE; -LUTE6CAP; +LUTE6CAP PO; +METOCLOPRAMIDE HCL INJ 5 MG/ML 2 ML VIAL IV PRN; +MIDAZOLAM HCL 1 MG/ML 2ML VIAL ONE; +MoRPHine SULFATE 10 MG/ML CARP/VIAL IV PRN; -ONDA4TAB65 PO; +ONDA4TAB9; +ONDANSETRON INJ 2 MG/ML 2 ML VIAL IV PRN; +ONDANSETRON INJ 2 MG/ML 2 ML VIAL ONE; +OXYC-609; -OXYC1TAB3 PO; +OXYCODONE/ACETAMINOPHEN 7.5-325 TAB PO PRN; +PHENYLEPHRINE 100MCG/ML 5ML SYR IV PRN; +PHENYLEPHRINE HCL INJ 10 MG/ML VIAL ONE; +PROPOFOL IV EMULSION 10 MG/ML 20 ML VIAL IV ONE; -TAMS0.4C38 PO
--- NOTE | 2017-11-19 10:22 | DIAGNOSTIC IMAGING REPORT ---
KUB CLINICAL HISTORY: Nephrolithiasis. COMPARISON STUDY: CT of the abdomen and pelvis November 10, 2014 and KUB November 15, 2017. FINDINGS: Pelvic calcifications were shown to represent phleboliths on prior CT of November 10, 2017. Note is made of a apparent 6 mm calcification immediately inferior to the right transverse process of L2. This may reflect a calculus within the right renal pelvis or right ureteropelvic junction. This is slightly more proximal than on exam of November 15, 2017. No additional urinary calculi are identified. IMPRESSION: Probable visualization of the previously described 6 mm right ureteral calculus now likely within the right renal pelvis or right ureteropelvic junction. Electronically signed by: Nima Ford M.D. 11/19/2017 10:21 AM Dictated Date/Time: 11/19/2017 10:16 AM
--- NOTE | 2017-11-19 12:04 | History & Physical Bridge - SC ---
H&P Re-Evaluation Bridge Note: I have examined the patient, reviewed the History & Physical and in the interval since the performance of the History & Physical I have noted the following changes of clinical significance: No changes noted. Right partially obstructing stone.
--- NOTE | 2017-11-19 12:09 | Discharge Instructions ---
Discharge Instructions Date of Service Nov 19, 2017. Admission Reason for Admission: Stones Discharge Discharge Diagnosis / Problem: Right UPJ Stone Discharge Goals Goal(s): Decrease discomfort, Improve function Activity Recommendations Activity Limitations: resume your previous activity Lifting Limitations: gradually increase as tolerated Exercise/Sports Limitations: as tolerated Shower/Bathe: no limitations . Instructions / Follow-Up Instructions / Follow-Up May have flank pain or bruising. May have blood in urine. May pass clots, sediments, or fragments. Call if any fevers or other issues. Current Hospital Diet Patient's current hospital diet: Discharge Diet Recommended Diet: Regular Diet Procedures Procedures Performed: R ESWL Pending Studies Studies pending at discharge: no Medical Emergencies . Who to Call and When: Medical Emergencies: If at any time you feel your situation is an emergency, please call 911 immediately. . Non-Emergent Contact Non-Emergency issues call your: Primary Care Provider, Urologist Call Non-Emergent contact if: you have a fever, temperature is above 101, temperature is above 101.5, your pain is not controlled, your pain is worsening . . "Provider Documentation" section prepared by Behzad Norris,. . VTE Core Measure Inpt VTE Proph given/why not?: SCD's
--- NOTE | 2017-11-19 15:17 | [facility] Operative Report ---
Operative Report Operative Date Nov 19, 2017. Pre-Operative Diagnosis Right UPJ Stone Post-Operative Diagnosis Same Procedure(s) Performed R ESWL Surgeon Jr Thread Reeler Surgeon(s) None Estimated Blood Loss Minimal Findings Right UPJ stone on imaging. Specimens None Anesthesia General Complication(s) None Disposition Recovery Room / PACU Indications Right stone at UPJ that has not passed with conservative measures. Risks and benefits discussed. Description of Procedure Patient was consented and brought back to the operating room. Patient was placed under anesthesia in the supine position. Patient was prepped and draped in the regular sterile fashion. A time out was completed. With the time out completed, The patient was assessed with fluoroscopy. The stone was identified and position was triangulated. At this point, the shock waves commenced. The stone was monitored throughout the process with fluoroscopy to assess progression and maintain position. The stone was pulverized with 2500 shocks at a maximum voltage of 5. With the stone treated, the procedure ended. The patient was cleaned, aroused from anesthesia, and transferred to the pacu in stable condition having tolerated the procedure well with no complications. I was present and participated in all aspects of the procedure. The patient will be monitored in the PACU until transferred. I attest to the content of the Intraoperative Record and any orders documented therein. Any exceptions are noted below.
[2017-11-19 15:49] VITALS: TEMP 37.1
[2017-11-19 16:14] VITALS: BP 132/82; PULSE 78; O2SAT 98
--- NOTE | 2017-11-19 16:24 | Anesthesia Progress Nt - [facility] ---
Anesthesia Post Op Note Date & Time Nov 19, 2017 at 16:24 Vital Signs Pain Intensity: 0 Vital Signs Past 12 Hours Date Time Temp Pulse Resp B/P (MAP) Pulse Ox O2 Delivery O2 Flow Rate FiO2 11/19/17 16:14 78 16 132/82 (99) 98 Room Air 11/19/17 15:49 37.1 76 16 126/85 (99) 96 Room Air 11/19/17 15:46 76 19 11/19/17 15:46 78 19 98 11/19/17 15:45 115/83 11/19/17 15:42 37.0 77 20 113/80 98 Room Air 11/19/17 15:41 74 13 11/19/17 15:41 74 13 98 11/19/17 15:40 113/80 11/19/17 15:36 76 13 100 11/19/17 15:36 79 13 11/19/17 15:35 134/86 11/19/17 15:33 71 20 100 11/19/17 15:33 72 20 11/19/17 15:30 114/79 11/19/17 15:28 71 13 100 11/19/17 15:28 72 13 11/19/17 15:27 110/60 11/19/17 15:23 76 19 100 11/19/17 15:23 77 19 11/19/17 15:20 114/73 11/19/17 15:18 80 11/19/17 15:18 36.2 82 12 107/74 97 Diffusion Mask 6 11/19/17 15:18 80 107/74 96 11/19/17 11:24 36.4 80 16 115/82 (93) 97 Room Air Notes Mental Status: alert / awake / arousable, participated in evaluation Pt Amnestic to Procedure: Yes Nausea / Vomiting: adequately controlled Pain: adequately controlled Airway Patency, RR, SpO2: stable & adequate BP & HR: stable & adequate Hydration State: stable & adequate Anesthetic Complications: no major complications apparent
== END | disposition home or self-care (01) ==
LOC: X.SURG 10:22
PROVIDERS: ATTEND Urology
DX: N20.1 Calculus of ureter (principal); E78.00 Pure hypercholesterolemia, unspecified; E03.9 Hypothyroidism, unspecified; E66.9 Obesity, unspecified; M13.0 Polyarthritis, unspecified; Z82.49 Family history of ischemic heart disease and other diseases of the circulatory system; Z80.3 Family history of malignant neoplasm of breast; Z83.79 Family history of other diseases of the digestive system; Z83.49 Family history of other endocrine, nutritional and metabolic diseases

== ENCOUNTER → 2017-12-02 | Outpatient (CLI) | payer OTHER ==
[~2017-12-02] MED LIST changes: -ATROPINE SULFATE 0.1 MG/ML 5ML SYR IV PRN; -CIPROFLOXACIN 400MG / D5W IV SCH; -DEXAMETHASONE SOD INJ 4 MG/ML VIAL IV PRN; -DEXAMETHASONE SOD INJ 4 MG/ML VIAL ONE; -EpHEDrine SULFATE INJ 50 MG/ML AMP IV PRN; -FENTANYL CITRATE INJ 50 MCG/1 ML 2 ML VIAL IV PRN; -FENTANYL CITRATE INJ 50 MCG/1 ML 2 ML VIAL ONE; -KETOROLAC TROMETHAMINE 30 MG/ML VIAL IV. PRN; -KETOROLAC TROMETHAMINE 30 MG/ML VIAL ONE; -LABETALOL HCL IV 5 MG/ML 20ML IV PRN; -LACTATED RINGER'S 1000ML 1,000 ML IV SCH; -LIDOCAINE HCL 2% 2 ML VIAL (20MG/ML) ONE; -METOCLOPRAMIDE HCL INJ 5 MG/ML 2 ML VIAL IV PRN; -MIDAZOLAM HCL 1 MG/ML 2ML VIAL ONE; -MoRPHine SULFATE 10 MG/ML CARP/VIAL IV PRN; -ONDANSETRON INJ 2 MG/ML 2 ML VIAL IV PRN; -ONDANSETRON INJ 2 MG/ML 2 ML VIAL ONE; -OXYCODONE/ACETAMINOPHEN 7.5-325 TAB PO PRN; -PHENYLEPHRINE 100MCG/ML 5ML SYR IV PRN; -PHENYLEPHRINE HCL INJ 10 MG/ML VIAL ONE; -PROPOFOL IV EMULSION 10 MG/ML 20 ML VIAL IV ONE
--- NOTE | 2017-12-02 18:25 | DIAGNOSTIC IMAGING REPORT ---
KUB CLINICAL HISTORY: 47 years-old Female presenting with N20.0 Nephrolithiasis. TECHNIQUE: Single supine view of the abdomen was obtained. COMPARISON: 11/19/[address] from 11/10/2017. FINDINGS: Nonobstructive bowel gas pattern. No gross pneumoperitoneum. Allowing for bowel gas and stool, no calcifications project over the kidneys to suggest renal calculi. The previously noted right ureteral calculus is not definitively visualized. Stable distribution of pelvic phleboliths. Osseous structures normal. Lung bases clear. IMPRESSION: 1. Nonvisualization of the right ureteral calculus. This may in part be due to bowel gas and stool. Passage cannot be excluded. Electronically signed by: Jomar Russell M.D. 12/02/2017 6:24 PM Dictated Date/Time: 12/02/2017 6:20 PM
== END | disposition home or self-care (01) ==
LOC: C.RAD 17:56
PROVIDERS: ATTEND Nurse Practitioner Adult Health
DX: N20.0 Calculus of kidney (principal)

== ENCOUNTER → 2017-12-03 | Outpatient (CLI) | payer OTHER | END | disposition home or self-care (01) | LOC: C.LABSPEC 14:39 | PROVIDERS: ATTEND Urology | DX: N20.0 Calculus of kidney (principal) ==

== ENCOUNTER 2020-01-09 15:54 | Observation (INO) ==
[2020-01-09] MEDS ORDERED: ONDANSETRON INJ 2 MG/ML 2 ML VIAL IV STA (16:31)
--- NOTE | 2020-01-09 16:43 | XRay Report ---
SINGLE VIEW CHEST CLINICAL HISTORY: Dysphagia. FINDINGS: An AP, portable, upright chest radiograph is compared to study dated 09/07/2014. The cardio mediastinal silhouette is unremarkable. The lungs and pleural spaces are clear. No pneumothorax is se en. The bony thorax is grossly intact. IMPRESSION: No active disease in the chest. ACT 112: Negative or not required by law. Electronically signed by: Shaun Bautista M.D. 01/09/2020 4:42 PM
[2020-01-09] MEDS ORDERED: SODIUM CHLORIDE 0.9% 1000ML 1,000 ML IV SCH (16:45)
--- NOTE | 2020-01-09 16:55 | Emergency Department Note ---
History of Present Illness General Chief complaint: Neck Injury/Pain Stated complaint: NECK PAIN, DIFFICULTY SWALLOWING Time Seen by Provider: 01/09/20 16:24 History of Present Illness Maximum Pain Intensity: 9 The patient is a 49-year-old female who presented to the emergency department for an evaluation of neck pain. The patient describes posterior neck pain which limits her range of motion significantly. She also has difficulty swallowing and pain with swallowing. She denies having any fever or headaches. She has had no trauma to her neck. She tried [id number] medications but only had minimal relief in her pain. The patient called her primary care physician and was sent to the emergency department for further evaluation. The patient denies having any abdominal pain or fevers. She denies having any lower extremity pain or weakness. The patient has not had similar symptoms in the past. Home Medications Home Medications Medication Instructions Recorded Confirmed Type acai bui extract 500 mg capsule 0 mg PO DAILY 11/27/19 01/09/20 History atorvastatin 10 mg tablet 10 mg PO QPM 11/27/19 01/09/20 History coQ10 (ubiquinol) 100 mg capsule 100 mg PO DAILY cap 11/27/19 01/09/20 History levothyroxine 112 mcg capsule 112 mcg PO QAM 11/27/19 01/09/20 History lutein 6 mg capsule 6 mg PO QAM 11/27/19 01/09/20 History multivitamin 1 tab PO BID 11/27/19 01/09/20 History glucosamine-chondroitin 1 cap PO BID 01/09/20 01/09/20 History cyclobenzaprine 10 mg PO Q6 PRN #60 tab 01/11/20 Rx ibuprofen [IBU] 600 mg PO Q8H PRN #30 tab 01/11/20 Rx methylprednisolone [Medrol (Nate)] 4 mg PO UD #21 ea 01/11/20 Rx omeprazole 20 mg PO DAILY #14 cap 01/11/20 Rx Allergies Allergy/AdvReac Type Severity Reaction Status Date / Time aspartame Allergy Unknown Verified 01/10/20 10:26 monosodium glutamate Allergy Unknown Verified 01/10/20 10:26 Past Med/Surg History Medical History History of varicella Hydronephrosis (Inactive) Kidney stones Renal colic (Inactive) Surgical History H/O oral surgery Family History Grandmother (Paternal) Breast cancer Sister Hypertension Mother Hypertension Father Hypertension Hypothyroidism Denies family history of Ovarian cancer Colorectal cancer Social History Preferred Language: [place] Communication Ability: Effective Seamer Panty Hose Required: No Beliefs That Will Affect Care: None Current Living Situation: Spouse Other Information That Helps Us Care for You: No Feels Safe at Home: Yes Safety Concerns: Feels Safe At This Time Smoking Status: Never smoker Hx Alcohol Use: No Hx Substance Use: No Review of Systems See HPI for pertinent positives & negatives. and A total of 10 systems reviewed and were otherwise negative Physical Exam Vital Signs Vital Signs - 24 hr 01/09/20 16:04 01/09/20 17:20 01/09/20 18:30 Temperature 37 C Temperature Source Oral Pulse Rate 103 H Pulse Rate [Left] 92 H Pulse Rhythm [Left] Regular Pulse Strength [Left] Normal Respiratory Rate 18 18 Respiratory Effort / Characteristics Non-Labored Spontaneous Non-Labored Spontaneous Respiratory Depth Normal Normal Respiratory Pattern Regular Regular Blood Pressure 146/91 H Blood Pressure [Right Arm] 139/91 Blood Pressure Mean 109 Blood Pressure Mean [Right Arm] 107 Blood Pressure Position Sitting Blood Pressure Position [Right Arm] Lying Pulse Oximetry 98 98 Oxygen Delivery Method Room Air Room Air Room Air Sepsis Recent Fever Within 48 Hours No Sepsis New/Unexplained Change in Mental Status No Sepsis Action Taken by Nursing No Action Required 01/09/20 20:17 Temperature Temperature Source Pulse Rate Pulse Rate [Left] 109 H Pulse Rhythm [Left] Pulse Strength [Left] Respiratory Rate 20 Respiratory Effort / Characteristics Non-Labored Respiratory Depth Normal Respiratory Pattern Blood Pressure Blood Pressure [Right Arm] 146/96 H Blood Pressure Mean Blood Pressure Mean [Right Arm] 112 Blood Pressure Position Blood Pressure Position [Right Arm] Lying Pulse Oximetry 97 Oxygen Delivery Method Room Air Sepsis Recent Fever Within 48 Hours Sepsis New/Unexplained Change in Mental Status Sepsis Action Taken by Nursing GENERAL: The patient is awake and alert. She is very anxious appearing and appears to be in significant pain. EYES: The conjunctivae are clear. The pupils are round and reactive. EARS, NOSE, MOUTH AND THROAT: The nose is without any evidence of any deformity. Mucous membranes are moist. No significant erythema or swelling is noted in the posterior oropharynx. NECK: The patient has severe decreased range of motion with any testing. She has posterior as well as anterior tenderness. There is some fullness in the anterior neck but no protrusion of the tongue. RESPIRATORY: Normal respiratory effort is noted there is no evidence of wheezing rhonchi or rales CARDIOVASCULAR: Regular rate and rhythm noted there no murmurs rubs or gallops normal S1 normal S2. GASTROINTESTINAL: The abdomen is soft. Abdomen is nontender. MUSCULOSKELETAL/EXTREMITIES: There is no evidence of gross deformity full range of motion is noted in the hips and shoulders. SKIN: There is no obvious evidence of any rash. There are no petechiae, pallor or cyanosis noted. NEUROLOGIC: Patient is awake alert and oriented x3 strength is symmetric patellar reflexes are 2+ bilaterally Course Course 184: I discussed the case with MARLI Reyes. She will discussed the case with Dr. Carbone and then we will discuss further management. Administered Medications Atorvastatin Calcium (Lipitor) 10 mg PO QPM SURINDER Stop: 02/09/20 20:59 Last Admin: 01/10/20 20:38 Dose: 10 mg Documented by: [id number] Cyclobenzaprine HCl (Flexeril) 10 mg PO Q6 PRN PRN Reason: muscle spasm Stop: 02/09/20 17:40 Last Admin: 01/11/20 08:40 Dose: 10 mg Documented by: [id number] Ibuprofen (Advil) 200 mg PO Q6H SURINDER Stop: 02/09/20 00:00 Last Admin: 01/11/20 11:48 Dose: 200 mg Documented by: [id number] Admin: 01/11/20 06:18 Dose: 200 mg Documented by: [id number] Admin: 01/11/20 00:01 Dose: 200 mg Documented by: [id number] Admin: 01/10/20 19:19 Dose: 200 mg Documented by: [id number] Admin: 01/10/20 11:36 Dose: 200 mg Documented by: [id number] Admin: 01/10/20 05:50 Dose: 200 mg Documented by: [id number] Admin: 01/09/20 23:50 Dose: 200 mg Documented by: [id number] Ketorolac Tromethamine (Toradol) 15 mg IV Q6H PRN PRN Reason: Pain Stop: 01/14/20 19:43 Last Admin: 01/10/20 21:43 Dose: 15 mg Documented by: [id number] Admin: 01/10/20 08:30 Dose: 15 mg Documented by: [id number] Levothyroxine Sodium (Synthroid) 112 mcg PO DAILYBB SURINDER Stop: 02/09/20 06:29 Last Admin: 01/11/20 06:18 Dose: 112 mcg Documented by: [id number] Admin: 01/10/20 05:50 Dose: 112 mcg Documented by: [id number] Multivitamins (Multivitamin Tab) 1 tab PO BID SURINDER Stop: 02/09/20 08:59 Last Admin: 01/11/20 08:01 Dose: 1 tab Documented by: [id number] Admin: 01/10/20 20:38 Dose: 1 tab Documented by: [id number] Admin: 01/10/20 08:29 Dose: 1 tab Documented by: [id number] Prednisone (Prednisone) 40 mg PO DAILY SURINDER Stop: 02/10/20 08:59 Last Admin: 01/11/20 08:01 Dose: 40 mg Documented by: [id number] Discontinued Medications Cyclobenzaprine HCl (Flexeril) 10 mg PO NOW STA Stop: 01/10/20 17:41 Last Admin: 01/10/20 18:32 Dose: 10 mg Documented by: [id number] Dexamethasone (Decadron) 10 mg IV NOW STA Stop: 01/09/20 18:57 Last Admin: 01/09/20 19:06 Dose: 10 mg Documented by: [id number] Enoxaparin Sodium (Lovenox) 30 mg SQ QAM SURINDER Stop: 02/09/20 08:59 Last Admin: 01/10/20 08:29 Dose: 30 mg Documented by: [id number] Fentanyl Citrate (Fentanyl Citrate) 50 mcg IV Q15M PRN PRN Reason: Pain Stop: 01/23/20 16:30 Last Admin: 01/09/20 19:06 Dose: 50 mcg Documented by: [id number] Admin: 01/09/20 17:41 Dose: 50 mcg Documented by: [id number] Gadobutrol (Gadavist 65ml) 7.8 ml IV ONCE PRN PRN Reason: Interaction Checking Stop: 01/13/20 21:10 Last Admin: 01/09/20 21:12 Dose: 7.8 ml Documented by: [id number] Sodium Chloride (Nss 1000ml) 1,000 mls @ 999 mls/hr IV .Q1H1M SURINDER Stop: 01/09/20 17:45 Last Infusion: 01/09/20 19:17 Dose: 0 mls/hr Documented by: [id number] Admin: 01/09/20 17:41 Dose: 999 mls/hr Documented by: [id number] Piperacillin Sod/Tazobactam Sod (Zosyn) 4.5 gm in 120 mls @ 240 mls/hr IV NOW ONE Stop: 01/09/20 18:51 Last Infusion: 01/09/20 19:40 Dose: 0 mls/hr Documented by: [id number] Admin: 01/09/20 19:00 Dose: 240 mls/hr Documented by: [id number] Parenteral Electrolytes (Normosol-R) 500 mls @ 999 mls/hr IV .Q31M ONE Stop: 01/09/20 20:34 Last Infusion: 01/09/20 22:44 Dose: 0 mls/hr Documented by: [id number] Admin: 01/09/20 22:01 Dose: 999 mls/hr Documented by: [id number] Daptomycin 300 mg/ Syringe 6 mls @ 3 mls/min IV NOW ONE Stop: 01/09/20 20:11 Last Admin: 01/09/20 20:46 Dose: 3 mls/min Documented by: [id number] Lorazepam (Ativan) 0.25 mg in 0.5 mls @ 0.5 mls/min IV NOW STA Stop: 01/09/20 20:33 Last Admin: 01/09/20 21:40 Dose: Not Given Documented by: [id number] Lactated Ringer's (Lr) 1,000 mls @ 100 mls/hr IV .Q10H ONE Stop: 01/10/20 09:59 Last Infusion: 01/10/20 11:36 Dose: 0 mls/hr Documented by: [id number] Admin: 01/09/20 23:51 Dose: 80 mls/hr Documented by: [id number] Ioversol (Optiray 320 125ml) 118 ml IV ONCE PRN PRN Reason: Interaction Checking Stop: 01/13/20 17:56 Last Admin: 01/09/20 17:58 Dose: 118 ml Documented by: [id number] Ketorolac Tromethamine (Toradol) 15 mg IV NOW ONE Stop: 01/09/20 20:04 Last Admin: 01/09/20 20:45 Dose: 15 mg Documented by: [id number] Lorazepam (Ativan) Confirm Administered Dose 2 mg .ROUTE .STK-MED ONE Stop: 01/09/20 20:37 Last Increment: 01/09/20 20:52 Dose: 0.25 mg Documented by: [id number] Ondansetron HCl (Zofran) 4 mg IV NOW STA Stop: 01/09/20 16:32 Last Admin: 01/09/20 17:41 Dose: 4 mg Documented by: [id number] Tizanidine HCl (Zanaflex) 2 mg PO NOW STA Stop: 01/09/20 20:04 Last Admin: 01/09/20 20:46 Dose: 2 mg Documented by: [id number] Tizanidine HCl (Zanaflex) 2 mg PO TID PRN PRN Reason: spasm Stop: 02/08/20 22:58 Last Admin: 01/10/20 13:20 Dose: 2 mg Documented by: [id number] Medical Decision Making Differential Diagnosis Etiologies such as cardiac ischemia, aortic dissection, pulmonary embolism, pneumonia, pneumothorax, musculoskeletal, infections, gastrointestinal, as well as others were entertained. Medical Records Attestation: I reviewed the patient's medical records. Home Medications Current Medication List: was personally reviewed by me Laboratory Data Attestation: I reviewed the patient's lab results. Result diagrams: 01/11/20 05:17 01/10/20 06:06 Lab Results 01/09/20 01/09/20 01/09/20 Range/Units 17:14 17:14 17:14 WBC (4.8-10.8) K/uL RBC (4.2-5.4) M/uL Hgb (12.0-16.0) g/dL POC Hgb (12.0-16.0) g/dl Hct (37-47) % POC Hct (37-47) % MCV (80-100) fL MCH (25-34) pg MCHC (32-36) g/dL RDW Std Deviation (36.4-46.3) fL RDW Coeff of Scar (11.5-14.5) % Plt Count (130-400) K/uL MPV (7.4-10.4) fL Immature Gran % (Auto) % Neut % (Auto) % Lymph % (Auto) % [place] % (Auto) % Eos % (Auto) % Baso % (Auto) % Immature Gran # (Auto) (0.00-0.02) K/uL Neut # (Auto) (1.4-6.5) K/uL Lymph # (Auto) (1.2-3.4) K/uL [place] # (Auto) (0.11-0.59) K/uL Eos # (Auto) (0-0.5) K/uL Baso # (Auto) (0-0.2) K/uL ESR 76 H (0-21) mm/hr PT 10.3 (9.0-12.0) Seconds INR 1.0 (0.9-1.1) APTT 29.6 (21.0-31.0) Seconds PTT Ratio 1.1 POC Sodium (135-144) mmol/L Sodium 135 L (136-145) mmol/L POC Potassium (3.3-5.0) mmol/L Potassium 3.6 (3.5-5.1) mmol/L POC Chloride (101-112) mmol/L Chloride 104 (98-107) mmol/L Carbon Dioxide 26 (21-32) mmol/L POC Total CO2 (24-31) mEq/l Anion Gap 5.0 (3-11) POC Anion Gap (16-25) mmol/L POC BUN (7-18) mg/dl BUN 9 (7-18) mg/dl Creatinine 0.61 (0.6-1.2) mg/dl POC Creatinine (0.6-1.3) mg/dl Est Cr Clr Drug Dosing 106.1 ml/min Est GFR ( Amer) 121.7 Est GFR (Non-Af Amer) 105.0 BUN/Creatinine Ratio 15.2 (10-20) Glucose 95 (70-99) mg/dl POC Glucose (other) (70-99) mg/dl Lactate (0.4-2.0) mmol/L Calcium 9.3 (8.5-10.1) mg/dl POC Ioniz Calcium Oskar (1.12-1.32) mmol/l Magnesium (1.8-2.4) mg/dl Total Bilirubin 0.7 (0.2-1) mg/dl AST 11 L (15-37) U/L ALT 22 (12-78) U/L Alkaline Phosphatase 83 (45-117) U/L Troponin I < 0.015 (0-0.045) ng/ml C-Reactive Protein 8.62 H (0-0.29) mg/dl Total Protein 9.3 H (6.4-8.2) gm/dl Albumin 3.8 (3.4-5.0) gm/dl Globulin 5.5 H (2.5-4.0) gm/dl Albumin/Globulin Ratio 0.7 L (0.9-2) Lipase 110 (73-393) U/L Procalcitonin (0-0.5) ng/ml TSH (0.300-4.500) uIu/ml Free T4 Cancelled Free T3 (2.3-4.2) pg/ml Total T3 (0.60-1.81) ng/ml HCG, Qual (Negative) 01/09/20 01/09/20 01/09/20 Range/Units 17:14 17:14 17:14 WBC 19.78 H (4.8-10.8) K/uL RBC 4.72 (4.2-5.4) M/uL Hgb 14.5 (12.0-16.0) g/dL POC Hgb (12.0-16.0) g/dl Hct 42.8 (37-47) % POC Hct (37-47) % MCV 90.7 (80-100) fL MCH 30.7 (25-34) pg MCHC 33.9 (32-36) g/dL RDW Std Deviation 46.3 (36.4-46.3) fL RDW Coeff of Scar 13.9 (11.5-14.5) % Plt Count 346 (130-400) K/uL MPV 9.4 (7.4-10.4) fL Immature Gran % (Auto) 0.4 % Neut % (Auto) 83.3 % Lymph % (Auto) 10.1 % [place] % (Auto) 5.8 % Eos % (Auto) 0.2 % Baso % (Auto) 0.2 % Immature Gran # (Auto) 0.08 H (0.00-0.02) K/uL Neut # (Auto) 16.47 H (1.4-6.5) K/uL Lymph # (Auto) 2.00 (1.2-3.4) K/uL [place] # (Auto) 1.15 H (0.11-0.59) K/uL Eos # (Auto) 0.04 (0-0.5) K/uL Baso # (Auto) 0.04 (0-0.2) K/uL ESR (0-21) mm/hr PT (9.0-12.0) Seconds INR (0.9-1.1) APTT (21.0-31.0) Seconds PTT Ratio POC Sodium (135-144) mmol/L Sodium (136-145) mmol/L POC Potassium (3.3-5.0) mmol/L Potassium (3.5-5.1) mmol/L POC Chloride (101-112) mmol/L Chloride (98-107) mmol/L Carbon Dioxide (21-32) mmol/L POC Total CO2 (24-31) mEq/l Anion Gap (3-11) POC Anion Gap (16-25) mmol/L POC BUN (7-18) mg/dl BUN (7-18) mg/dl Creatinine (0.6-1.2) mg/dl POC Creatinine (0.6-1.3) mg/dl Est Cr Clr Drug Dosing ml/min Est GFR ( Amer) Est GFR (Non-Af Amer) BUN/Creatinine Ratio (10-20) Glucose (70-99) mg/dl POC Glucose (other) (70-99) mg/dl Lactate (0.4-2.0) mmol/L Calcium (8.5-10.1) mg/dl POC Ioniz Calcium Oskar (1.12-1.32) mmol/l Magnesium 2.3 (1.8-2.4) mg/dl Total Bilirubin (0.2-1) mg/dl AST (15-37) U/L ALT (12-78) U/L Alkaline Phosphatase (45-117) U/L Troponin I (0-0.045) ng/ml C-Reactive Protein (0-0.29) mg/dl Total Protein (6.4-8.2) gm/dl Albumin (3.4-5.0) gm/dl Globulin (2.5-4.0) gm/dl Albumin/Globulin Ratio (0.9-2) Lipase (73-393) U/L Procalcitonin (0-0.5) ng/ml TSH 0.170 L (0.300-4.500) uIu/ml Free T4 1.54 Free T3 (2.3-4.2) pg/ml Total T3 (0.60-1.81) ng/ml HCG, Qual Negative (Negative) 01/09/20 01/09/20 01/09/20 Range/Units 17:14 17:14 17:31 WBC (4.8-10.8) K/uL RBC (4.2-5.4) M/uL Hgb (12.0-16.0) g/dL POC Hgb 15.3 (12.0-16.0) g/dl Hct (37-47) % POC Hct 45 (37-47) % MCV (80-100) fL MCH (25-34) pg MCHC (32-36) g/dL RDW Std Deviation (36.4-46.3) fL RDW Coeff of Scar (11.5-14.5) % Plt Count (130-400) K/uL MPV (7.4-10.4) fL Immature Gran % (Auto) % Neut % (Auto) % Lymph % (Auto) % [place] % (Auto) % Eos % (Auto) % Baso % (Auto) % Immature Gran # (Auto) (0.00-0.02) K/uL Neut # (Auto) (1.4-6.5) K/uL Lymph # (Auto) (1.2-3.4) K/uL [place] # (Auto) (0.11-0.59) K/uL Eos # (Auto) (0-0.5) K/uL Baso # (Auto) (0-0.2) K/uL ESR (0-21) mm/hr PT (9.0-12.0) Seconds INR (0.9-1.1) APTT (21.0-31.0) Seconds PTT Ratio POC Sodium 137 (135-144) mmol/L Sodium (136-145) mmol/L POC Potassium 3.7 (3.3-5.0) mmol/L Potassium (3.5-5.1) mmol/L POC Chloride 103 (101-112) mmol/L Chloride (98-107) mmol/L Carbon Dioxide (21-32) mmol/L POC Total CO2 24 (24-31) mEq/l Anion Gap (3-11) POC Anion Gap 14.0 L (16-25) mmol/L POC BUN 9 (7-18) mg/dl BUN (7-18) mg/dl Creatinine (0.6-1.2) mg/dl POC Creatinine 0.5 L (0.6-1.3) mg/dl Est Cr Clr Drug Dosing ml/min Est GFR ( Amer) Est GFR (Non-Af Amer) BUN/Creatinine Ratio (10-20) Glucose (70-99) mg/dl POC Glucose (other) 99 (70-99) mg/dl Lactate (0.4-2.0) mmol/L Calcium (8.5-10.1) mg/dl POC Ioniz Calcium Oskar 1.15 (1.12-1.32) mmol/l Magnesium (1.8-2.4) mg/dl Total Bilirubin (0.2-1) mg/dl AST (15-37) U/L ALT (12-78) U/L Alkaline Phosphatase (45-117) U/L Troponin I (0-0.045) ng/ml C-Reactive Protein (0-0.29) mg/dl Total Protein (6.4-8.2) gm/dl Albumin (3.4-5.0) gm/dl Globulin (2.5-4.0) gm/dl Albumin/Globulin Ratio (0.9-2) Lipase (73-393) U/L Procalcitonin < 0.05 (0-0.5) ng/ml TSH (0.300-4.500) uIu/ml Free T4 Free T3 2.52 (2.3-4.2) pg/ml Total T3 0.93 (0.60-1.81) ng/ml HCG, Qual (Negative) 01/09/20 Range/Units 20:13 WBC (4.8-10.8) K/uL RBC (4.2-5.4) M/uL Hgb (12.0-16.0) g/dL POC Hgb (12.0-16.0) g/dl Hct (37-47) % POC Hct (37-47) % MCV (80-100) fL MCH (25-34) pg MCHC (32-36) g/dL RDW Std Deviation (36.4-46.3) fL RDW Coeff of Scar (11.5-14.5) % Plt Count (130-400) K/uL MPV (7.4-10.4) fL Immature Gran % (Auto) % Neut % (Auto) % Lymph % (Auto) % [place] % (Auto) % Eos % (Auto) % Baso % (Auto) % Immature Gran # (Auto) (0.00-0.02) K/uL Neut # (Auto) (1.4-6.5) K/uL Lymph # (Auto) (1.2-3.4) K/uL [place] # (Auto) (0.11-0.59) K/uL Eos # (Auto) (0-0.5) K/uL Baso # (Auto) (0-0.2) K/uL ESR (0-21) mm/hr PT (9.0-12.0) Seconds INR (0.9-1.1) APTT (21.0-31.0) Seconds PTT Ratio POC Sodium (135-144) mmol/L Sodium (136-145) mmol/L POC Potassium (3.3-5.0) mmol/L Potassium (3.5-5.1) mmol/L POC Chloride (101-112) mmol/L Chloride (98-107) mmol/L Carbon Dioxide (21-32) mmol/L POC Total CO2 (24-31) mEq/l Anion Gap (3-11) POC Anion Gap (16-25) mmol/L POC BUN (7-18) mg/dl BUN (7-18) mg/dl Creatinine (0.6-1.2) mg/dl POC Creatinine (0.6-1.3) mg/dl Est Cr Clr Drug Dosing ml/min Est GFR ( Amer) Est GFR (Non-Af Amer) BUN/Creatinine Ratio (10-20) Glucose (70-99) mg/dl POC Glucose (other) (70-99) mg/dl Lactate 0.8 (0.4-2.0) mmol/L Calcium (8.5-10.1) mg/dl POC Ioniz Calcium Oskar (1.12-1.32) mmol/l Magnesium (1.8-2.4) mg/dl Total Bilirubin (0.2-1) mg/dl AST (15-37) U/L ALT (12-78) U/L Alkaline Phosphatase (45-117) U/L Troponin I (0-0.045) ng/ml C-Reactive Protein (0-0.29) mg/dl Total Protein (6.4-8.2) gm/dl Albumin (3.4-5.0) gm/dl Globulin (2.5-4.0) gm/dl Albumin/Globulin Ratio (0.9-2) Lipase (73-393) U/L Procalcitonin (0-0.5) ng/ml TSH (0.300-4.500) uIu/ml Free T4 Free T3 (2.3-4.2) pg/ml Total T3 (0.60-1.81) ng/ml HCG, Qual (Negative) Imaging Data Radiologist's Impression: CT soft tissue neck w con CT DOSE: CLINICAL HISTORY: neck pain and dysphagia TECHNIQUE: Helical images were acquired during intravenous administration of 118 cc of Optiray 320. A dose lowering technique was utilized adhering to the principles of ALARA. COMPARISON STUDY: None. FINDINGS: The visualized portions of the lung apices are unremarkable. No thyroid masses are visualized. No salivary gland masses are visualized. Minimally prominent cervical lymph nodes are likely reactive. No necrotic nodes are evident. There are no fluid collections suspicious for abscess. There is no evidence of airway compromise. There is mild retropharyngeal edema. The findings are likely secondary to calcific tendinitis of the longus coli. The epiglottis appears normal. There are moderate degenerative changes within the cervical spine. There is minor stranding within the fat at the base of the right neck, finding of questionable clinical significance IMPRESSION: 1. 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 Electronically signed by: Sundeep Wood M.D. 01/09/2020 6:09 PM Dictated: 01/09/201802 Transcribed: 01/09/201802 SINGLE VIEW CHEST CLINICAL HISTORY: Dysphagia. FINDINGS: An AP, portable, upright chest radiograph is compared to study dated 09/07/2014. The cardiomediastinal silhouette is unremarkable. The lungs and pleural spaces are clear. No pneumothorax is seen. The bony thorax is grossly intact. IMPRESSION: No active disease in the chest. ACT 112: Negative or not required by law. Electronically signed by: Shaun Bautista M.D. 01/09/2020 4:[address] ANGIOGRAM OF THE CHEST CLINICAL HISTORY: Shortness of breath. Dysphagia. Possible pulmonary embolism. COMPARISON STUDY: Chest x-ray dated 01/09/2020 TECHNIQUE: Following the IV administration of 118 mL of Optiray-320, CT angiogram of the thorax was performed from the thoracic inlet to the lung bases utilizing the pulmonary embolus protocol. Images are reviewed in the axial, sagittal, and coronal planes. IV contrast was administered without complication. MIP imaging was performed. A dose lowering technique was utilized adhering to the principles of ALARA. CT DOSE: 1090.49 mGy.cm FINDINGS: No pathologically enlarged axillary mediastinal or hilar lymph nodes were visualized. There was no evidence of thoracic aortic dilatation. There were no pulmonary artery filling defects to indicate acute pulmonary embolism. No pleural effusions are visualized. There was no evidence of focal pulmonary consolidation. IMPRESSION: 1. No acute intrathoracic findings 2. No evidence of acute pulmonary embolism 3. No evidence of focal pulmonary consolidation ACT 112: Negative or not required by law. Electronically signed by: Sundeep Wood M.D. 01/09/2020 6:03 PM Dictated: 01/09/201758 Transcribed: 01/09/201758 ECG Data Attestation: I personally reviewed and interpreted this ECG as follows: Indication: + back/shoulder pain Rate (beats per minute): 97 Prescription Drug Monitoring Prescription Drug Findings: EKG revealed normal sinus rhythm 97 bpm. Low voltage was noted. Low lateral ST depressions were noted. There was no ectopy. ST segment abnormalities are new compared to November 15, 2017. Blood Pressure Blood Pressure Findings: Elevated blood pressure Blood Pressure Disposition: further management by hospitalist JAZMIN Vanegas The patient is a 49-year-old female who presented to the emergency department for an evaluation of neck pain. The patient had very severe neck pain with restricted range of motion in flexion extension as well as rotation. The patient did have posterior neck pain on palpation but no definite injury was reported. The patient has no focal neurologic deficits or radicular symptoms. The patient states that she had significant trouble with swallowing. She has no intraoral swelling that I could note but has some trismus on physical exam. The patient was found to have an elevated white blood cell count. This prompted further work-up to ensure there is no infectious process in the soft tissue of the neck. She also has an abnormal EKG with some diffuse ST segment abnormalities so I was concerned this could be referred pain from cardiac or possibly pulmonary pathology. I discussed the patient's laboratory and radiographic studies with her. She was treated with IV pain medication in the emergency department. She was also treated with IV antibiotics. I discussed her case with the on-call ear nose and throat group. They did recommend further work-up to exclude musculoskeletal cause for her pain but also did recommend Decadron 10 mg every 8 hours. They agreed with antibiotic coverage at this time. I discussed this case with the on-call [facility] hospitalist group. They have agreed to evaluate the patient in the emergency department for further management and disposition. Impression & Plan Acute neck pain, Elevated WBC count, Abnormal ECG, Cervical muscle strain Discharge Plan Visit Data *Final* Discharge Date/Time: 01/09/20 22:42 Chief Complaint: Neck Injury/Pain Stated Complaint: NECK PAIN, DIFFICULTY SWALLOWING ED Provider: Rg David Discharge Problem: Acute neck pain, Elevated WBC count, Abnormal ECG, Cervical muscle strain Patient Disposition: Admitted As Inpatient Condition: Good Discharge Instructions Interventions: ED Discharge Assessment Last Done: 01/09/20 22:42 Discharge Problem: Elevated WBC count Qualifiers: Leukocytosis type: unspecified Qualified Code(s): D72.829 - Elevated white blood cell count, unspecified Cervical muscle strain Qualifiers: Encounter type: initial encounter Qualified Code(s): S16.1XXA - Strain of muscle, fascia and tendon at neck level, initial encounter
[2020-01-09 17:25] LABS: Basophils # (auto) 0.04 K/uL (0-0.2); Basophils % (auto) 0.2 %; Eosinophils # (auto) 0.04 K/uL (0-0.5); Eosinophils % (auto) 0.2 %; Hematocrit (blood only) 42.8 % (37-47); Hemoglobin 14.5 g/dL (12.0-16.0); Immature Granulocytes # (auto) 0.08 K/uL (0.00-0.02); Immature Granulocytes % (auto) 0.4 %; Lymphocytes % (auto) 10.1 %; Mean Corpuscular Hemoglobin 30.7 pg (25-34); Mean Corpuscular Hgb Conc 33.9 g/dL (32-36); Mean Corpuscular Volume 90.7 fL (80-100); Mean Platelet Volume 9.4 fL (7.4-10.4); Monocytes # (auto) 1.15 K/uL (0.11-0.59); Monocytes % (auto) 5.8 %; Neutrophils # (auto) 16.47 K/uL (1.4-6.5); Neutrophils % (auto) 83.3 %; Platelet Count 346 K/uL (130-400); RDW Coefficient of Variation 13.9 % (11.5-14.5); RDW Standard Deviation 46.3 fL (36.4-46.3); Red Blood Count 4.72 M/uL (4.2-5.4); White Blood Count 19.78 K/uL (4.8-10.8)
[2020-01-09 17:35] LABS: Partial Thromboplastin Ratio 1.1; Partial Thromboplastin Time 29.6 Seconds (21.0-31.0); Prothrombin Time 10.3 Seconds (9.0-12.0)
[2020-01-09] MEDS: fentaNYL citrate 100 MCG/2 ML VIAL IV PRN ×2 (17:41→19:06)
[2020-01-09 17:45] LABS: Pregnancy Test, Serum Negative (Negative)
[2020-01-09 17:56] LABS: Alanine Aminotransferase 22 U/L (12-78); Albumin Level 3.8 gm/dl (3.4-5.0); Aspartate Aminotransferase 11 U/L (15-37); BUN Creatinine Ratio 15.2 (10-20); Blood Urea Nitrogen 9 mg/dl (7-18); C Reactive Protein 8.62 mg/dl (0-0.29); Calcium 9.3 mg/dl (8.5-10.1); Carbon Dioxide 26 mmol/L (21-32); Chloride 104 mmol/L (98-107); Creatinine Clr Calc Pharmacy 106.1 ml/min; Est GFR (African American) 121.7; Glucose 95 mg/dl (70-99); Lipase 110 U/L (73-393); Potassium 3.6 mmol/L (3.5-5.1); Sodium 135 mmol/L (136-145)
[2020-01-09] MEDS ORDERED: OPTIRAY 320 125ml IV PRN (17:57)
[2020-01-09 18:00] LABS: Albumin Globulin Ratio 0.7 (0.9-2); Alkaline Phosphatase 83 U/L (45-117); Bilirubin,Total 0.7 mg/dl (0.2-1); Globulin 5.5 gm/dl (2.5-4.0); Total Protein 9.3 gm/dl (6.4-8.2); Troponin I < 0.015 ng/ml (0-0.045)
--- NOTE | 2020-01-09 18:04 | CT Scan Report ---
CT ANGIOGRAM OF THE CHEST CLINICAL HISTORY: Shortness of breath. Dysphagia. Possible pulmonary embolism. COMPARISON STUDY: Chest x-ray dated 01/09/2020 TECHNIQUE: Following the IV administration of 118 mL of Optiray-320, CT angiogram of the thorax was p erformed from the thoracic inlet to the lung bases utilizing the pulmonary embolus protocol. Images a re reviewed in the axial, sagittal, and coronal planes. IV contrast was administered without complica tion. MIP imaging was performed. A dose lowering technique was utilized adhering to the principles o f ALARA. CT DOSE: 1090.49 mGy.cm FINDINGS: No pathologically enlarged axillary mediastinal or hilar lymph nodes were visualized. There was no evidence of thoracic aortic dilatation. There were no pulmonary artery filling defects to indicate acute pulmonary embolism. No pleural effusions are visualized. There was no evidence of focal pulmonary consolidation. IMPRESSION: 1. No acute intrathoracic findings 2. No evidence of acute pulmonary embolism 3. No evidence of focal pulmonary consolidation ACT 112: Negative or not required by law. Electronically signed by: Sundeep Wood M.D. 01/09/2020 6:03 PM
--- NOTE | 2020-01-09 18:10 | CT Scan Report ---
CT soft tissue neck w con CT DOSE: CLINICAL HISTORY: neck pain and dysphagia TECHNIQUE: Helical images were acquired during intravenous administration of 118 cc of Optiray 320. A dose lowering technique was utilized adhering to the principles of ALARA. COMPARISON STUDY: None. FINDINGS: The visualized portions of the lung apices are unremarkable. No thyroid masses are visualized. No salivary gland masses are visualized. Minimally prominent cervical lymph nodes are likely reactive. No necrotic nodes are evident. There are no fluid collections suspicious for abscess. There is no evidence of airway compromise. There is mild retropharyngeal edema. The findings are likely secondary to calcific tendinitis of the longus coli. The epiglottis appears normal. There are moderate degenerative changes within the cervical spine. There is minor stranding within the fat at the base of the right neck, finding of questionable clinic al significance IMPRESSION: 1. 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 Electronically signed by: Sundeep Wood M.D. 01/09/2020 6:09 PM
[2020-01-09] MEDS ORDERED: PIPERACILL/TAZOBAC CONSULT ACTIVE PRN (18:22)
[2020-01-09] MEDS ORDERED: PIPERACILLIN/TAZOBACTAM 4.5 GM/120 ML BAG IV ONE (18:22)
[2020-01-09 18:50] LABS: Appearance Urine Clear (Clear); Bacteria Urine Automated Negative (Negative); Bilirubin Urine Negative (Negative); Blood Urine 1+ (Negative); Cast Urine Automated 0 /lpf (0-5); Color Urine Yellow; Glucose Urine UA Negative (Negative); Ketones Urine 1+ (Negative); Leukocyte Esterase Urine Negative (Negative); Nitrite Urine Negative (Negative); Protein Urine Negative (Negative); RBC Urine Automated 0-4 /hpf (0-4); Specific Gravity Urine 1.035 (1.000-1.030); Urobilinogen Urine Negative (Negative); pH Urine 6.5 (4.5-7.5)
[2020-01-09] MEDS ORDERED: DEXAMETHASONE SOD INJ 4 MG/ML VIAL IV STA (18:56)
[2020-01-09] MEDS ORDERED: TIZANIDINE HCL 4 MG TABLET PO STA (20:03)
[2020-01-09] MEDS ORDERED: KETOROLAC TROMETHAMINE 15 MG/ML VIAL IV ONE (20:03)
[2020-01-09] MEDS ORDERED: NORMOSOL-R 500 ML IV ONE (20:04)
[2020-01-09 20:09] LABS: Magnesium 2.3 mg/dl (1.8-2.4); Thyroid Stimulating Hormone 0.17 uIu/ml (0.300-4.500)
[2020-01-09] MEDS ORDERED: DAPTOmycin 300 MG in SYRINGE 0 ML IV ONE (20:10)
[2020-01-09] MEDS ORDERED: DAPTOMYCIN CONSULT ACTIVE PRN (20:10)
[2020-01-09] MEDS ORDERED: LORazepam 0.25 MG/0.5 ML VIAL IV STA (20:32)
[2020-01-09] MEDS: LORazepam 2 MG/4 ML VIAL ONE ×2 (20:40→20:52)
[2020-01-09] MEDS ORDERED: GADOBUTROL 65ML VIAL IV PRN (21:11)
--- NOTE | 2020-01-09 21:54 | Magnetic Resonance Report ---
MR cervical spine wo/w con CLINICAL HISTORY: Neck pain. Possible abscess. TECHNIQUE: Sagittal and axial T1, T2 and STIR images were obtained. Images were acquired before and a fter the administration of 7.8 cc of intravenous Gadavist. COMPARISON STUDY: CT scan dated 01/09/2020 There are no suspicious areas of marrow replacement. No intrinsic cervical cord lesions are visualize d. C2-3: There is no evidence of disc bulge or focal herniation. There is no spinal or foraminal stenosi s. C3-4: There is no evidence of disc bulge or focal herniation. There is no spinal or foraminal stenosi s. C4-5: There are no disc bulges or focal herniations. There is no spinal or foraminal stenosis. C5-6 :There is minor retrolisthesis of C5 on C6. There is a circumferential disc bulge. There is mini mal spinal canal narrowing. There is mild bilateral foraminal narrowing C6-7: There is circumferential disc bulge. There is minor spinal canal narrowing. There is mild bilat eral foraminal narrowing C7-T1: There is no evidence of disc bulge or focal herniation. There is no evidence of spinal or fora rain stenosis. There are no pathologically enhancing masses. There is prevertebral soft tissue edema. There are prevertebral soft tissue calcifications the C2 lev el, better visualized on the CT scan. The findings read in conjunction with a CT scan are typical for acute tendinitis of the longus coli muscle. IMPRESSION: 1. Findings indicative of acute tendinitis the longus coli muscle 2. Multilevel spondylytic changes as described above ACT 112: Negative or not required by law. Electronically signed by: Sundeep Wood M.D. 01/09/2020 9:53 PM
--- NOTE | 2020-01-09 22:07 | History & Physical Report ---
Date of Service January 09, 2020 Assessment & Plan (1) Acute neck pain: With dysphagia Secondary to longus colli tendinitis Situational hypertension, tachycardia secondary to above Hypothyroidism, TSH low with other TFTs WNL OBS Medical telemetry NSAIDs for analgesia, antispasmodics No antibiotics given noninfectious etiology of neck pain. Orthopedic spine consult in a.m. DVT prophylaxis per Lovenox subcu Full code Text document was generated using [employer] voice recognition software. It may contain grammatical or spelling errors. Kindly contact undersigned for clarification of any documentation item in question. History of Present Illness Chief Complaint: Neck pain, dysphagia Primary Care Provider: Daniel Alberto MD History obtained from patient and records. Medical history significant for hypothyroidism, fatty liver as per records. Few days history of achy posterior neck pain worse with motion without radiation to the arms or arm/leg weakness, bowel/bladder incontinence. No fever, no chills. Patient because uncomfortable sitting position during a 5-hour car travel last week. No recollection of recent trauma. No headache. No chest pain, no S OB. No fever, no chills. Patient also noted dysphagia symptoms. No prior episodes in the past. At the ER, patient received Decadron, Zosyn and Daptomycin. Medical History as above Surgical History : Dental surgery Family History : Lung cancer, breast cancer, hypothyroidism Personal/Social history : Non-smoker, occasional EtOH intake, [employer] Allergies Allergy/AdvReac Type Severity Reaction Status Date / Time No Known Allergies Allergy Verified 01/09/20 19:46 Home Medications Home Medications Medication Instructions Recorded Confirmed Type acai bui extract 500 mg capsule 0 mg PO DAILY 11/27/19 01/09/20 History atorvastatin 10 mg tablet 10 mg PO QPM 11/27/19 01/09/20 History coQ10 (ubiquinol) 100 mg capsule 100 mg PO DAILY cap 11/27/19 01/09/20 History levothyroxine 112 mcg capsule 112 mcg PO QAM 11/27/19 01/09/20 History lutein 6 mg capsule 6 mg PO QAM 11/27/19 01/09/20 History multivitamin 1 tab PO BID 11/27/19 01/09/20 History glucosamine-chondroitin 1 cap PO BID 01/09/20 01/09/20 History Past Med/Surg History Medical History History of varicella Hydronephrosis (Inactive) Kidney stones Renal colic (Inactive) Surgical History H/O oral surgery Family History Grandmother (Paternal) Breast cancer Sister Hypertension Mother Hypertension Father Hypertension Hypothyroidism Denies family history of Ovarian cancer Colorectal cancer Social History Preferred Language: Tamazight Communication Ability: Effective Service Line Coordinator Required: No Beliefs That Will Affect Care: None Current Living Situation: Spouse Other Information That Helps Us Care for You: No Feels Safe at Home: Yes Safety Concerns: Feels Safe At This Time Smoking Status: Never smoker Hx Alcohol Use: No Hx Substance Use: No Review of Systems Review of Systems: As per HPI, all 10 systems reviewed, all other ROS negative Physical Exam Physical Exam: GENERAL: Slightly uncomfortable, obese, pleasant, no respiratory distress SKIN: Normal color, warm HEENT: Bespectacled, pink palpebral conjunctivae, no ptosis, dry buccal mucosa NECK : Marked cervical spasm limiting ROM, neck tenderness CHEST : CTA, no tenderness HEART : Tachycardic , no obvious murmurs ABDOMEN: Some distention, nontender EXTREMITIES : No LE swelling/tenderness, no other conspicuous deformities noted NEUROLOGIC : Coherent, no facial asymmetry, no other gross focality Results & Data Vital Signs (Past 12 Hours) Vital Signs Temp Pulse Pulse Resp BP BP Pulse Ox 01/09/20 22:00 94 H 18 94/57 L 95 01/09/20 20:17 109 H 20 146/96 H 97 01/09/20 18:30 92 H 18 139/91 98 01/09/20 16:04 37 C 103 H 18 146/91 H 98 Laboratory Results Laboratory Results WBC 19.78 K/uL (4.8-10.8) H 01/09/20 17:14 RBC 4.72 M/uL (4.2-5.4) 01/09/20 17:14 Hgb 14.5 g/dL (12.0-16.0) 01/09/20 17:14 Hct 42.8 % (37-47) 01/09/20 17:14 MCV 90.7 fL (80-100) 01/09/20 17:14 MCH 30.7 pg (25-34) 01/09/20 17:14 MCHC 33.9 g/dL (32-36) 01/09/20 17:14 RDW Std Deviation 46.3 fL (36.4-46.3) 01/09/20 17:14 RDW Coeff of Scar 13.9 % (11.5-14.5) 01/09/20 17:14 Plt Count 346 K/uL (130-400) 01/09/20 17:14 MPV 9.4 fL (7.4-10.4) 01/09/20 17:14 Immature Gran % (Auto) 0.4 % 01/09/20 17:14 Neut % (Auto) 83.3 % 01/09/20 17:14 Lymph % (Auto) 10.1 % 01/09/20 17:14 [place] % (Auto) 5.8 % 01/09/20 17:14 Eos % (Auto) 0.2 % 01/09/20 17:14 Baso % (Auto) 0.2 % 01/09/20 17:14 Immature Gran # (Auto) 0.08 K/uL (0.00-0.02) H 01/09/20 17:14 Neut # (Auto) 16.47 K/uL (1.4-6.5) H 01/09/20 17:14 Lymph # (Auto) 2.00 K/uL (1.2-3.4) 01/09/20 17:14 [place] # (Auto) 1.15 K/uL (0.11-0.59) H 01/09/20 17:14 Eos # (Auto) 0.04 K/uL (0-0.5) 01/09/20 17:14 Baso # (Auto) 0.04 K/uL (0-0.2) 01/09/20 17:14 ESR 76 mm/hr (0-21) H 01/09/20 17:14 PT 10.3 Seconds (9.0-12.0) 01/09/20 17:14 INR 1.0 (0.9-1.1) 01/09/20 17:14 APTT 29.6 Seconds (21.0-31.0) 01/09/20 17:14 PTT Ratio 1.1 01/09/20 17:14 Sodium 135 mmol/L (136-145) L 01/09/20 17:14 Potassium 3.6 mmol/L (3.5-5.1) 01/09/20 17:14 Chloride 104 mmol/L (98-107) 01/09/20 17:14 Carbon Dioxide 26 mmol/L (21-32) 01/09/20 17:14 Anion Gap 5.0 (3-11) 01/09/20 17:14 BUN 9 mg/dl (7-18) 01/09/20 17:14 Creatinine 0.61 mg/dl (0.6-1.2) 01/09/20 17:14 Est Cr Clr Drug Dosing 106.1 ml/min 01/09/20 17:14 Est GFR ( Amer) 121.7 01/09/20 17:14 Est GFR (Non-Af Amer) 105.0 01/09/20 17:14 BUN/Creatinine Ratio 15.2 (10-20) 01/09/20 17:14 Glucose 95 mg/dl (70-99) 01/09/20 17:14 Lactate 0.8 mmol/L (0.4-2.0) 01/09/20 20:13 Calcium 9.3 mg/dl (8.5-10.1) 01/09/20 17:14 Magnesium 2.3 mg/dl (1.8-2.4) 01/09/20 17:14 Total Bilirubin 0.7 mg/dl (0.2-1) 01/09/20 17:14 AST 11 U/L (15-37) L 01/09/20 17:14 ALT 22 U/L (12-78) 01/09/20 17:14 Alkaline Phosphatase 83 U/L (45-117) 01/09/20 17:14 Troponin I < 0.015 ng/ml (0-0.045) 01/09/20 17:14 C-Reactive Protein 8.62 mg/dl (0-0.29) H 01/09/20 17:14 Total Protein 9.3 gm/dl (6.4-8.2) H 01/09/20 17:14 Albumin 3.8 gm/dl (3.4-5.0) 01/09/20 17:14 Globulin 5.5 gm/dl (2.5-4.0) H 01/09/20 17:14 Albumin/Globulin Ratio 0.7 (0.9-2) L 01/09/20 17:14 Lipase 110 U/L (73-393) 01/09/20 17:14 TSH 0.170 uIu/ml (0.300-4.500) L 01/09/20 17:14 HCG, Qual Negative (Negative) 01/09/20 17:14 Urine Color Yellow 01/09/20 Unknown Urine Appearance Clear (Clear) 01/09/20 Unknown Urine pH 6.5 (4.5-7.5) 01/09/20 Unknown Ur Specific [place] 1.035 (1.000-1.030) H 01/09/20 Unknown Urine Protein Negative (Negative) 01/09/20 Unknown Urine Glucose (UA) Negative (Negative) 01/09/20 Unknown Urine Ketones 1+ (Negative) H 01/09/20 Unknown Urine Blood 1+ (Negative) H 01/09/20 Unknown Urine Nitrite Negative (Negative) 01/09/20 Unknown Urine Bilirubin Negative (Negative) 01/09/20 Unknown Urine Urobilinogen Negative (Negative) 01/09/20 Unknown Ur Leukocyte Esterase Negative (Negative) 01/09/20 Unknown Urine WBC (Auto) 1-5 /hpf (0-5) 01/09/20 Unknown Urine RBC (Auto) 0-4 /hpf (0-4) 01/09/20 Unknown U Hyaline Cast (Auto) 0 /lpf (0-5) 01/09/20 Unknown U Epithel Cells (Auto) 10-20 /lpf (0-5) H 01/09/20 Unknown Urine Bacteria (Auto) Negative (Negative) 01/09/20 Unknown Diagnostic Findings Soft tissue neck CT: Mild retropharyngeal soft tissue edema, likely secondary to calcific tendinitis of the longus coli muscle Chest CT: 1. No acute intrathoracic findings 2. No evidence of acute pulmonary embolism 3. No evidence of focal pulmonary consolidation Cervical spine MRI: 1. Findings indicative of acute tendinitis the longus coli muscle 2. Multilevel spondylytic changes as described above EKG as per my interpretation:Rate 100, NSR, normal axis, nonspecific T wave abnormalities Code Status & VTE Plan VTE Prophylaxis Plan VTE Prophylaxis will be ordered: Yes
[2020-01-09] MEDS ORDERED: ACETAMINOPHEN 325 MG TAB PO PRN (22:59)
[2020-01-09] MEDS ORDERED: PROMETHAZINE HCL 12.5 MG in SODIUM CHLORIDE 0.9% 50 ML IV PRN (22:59)
[2020-01-09] MEDS ORDERED: IBUPROFEN 200 MG TAB PO PRN (22:59)
[2020-01-09] MEDS ORDERED: TIZANIDINE HCL 4 MG TABLET PO PRN (22:59)
[2020-01-09 23:42] LABS: T3 Free 2.52 pg/ml (2.3-4.2); T3 Total 0.93 ng/ml (0.60-1.81)
[2020-01-09] MEDS: IBUPROFEN 200 MG TAB PO SCH (23:50)
[2020-01-10] MEDS ORDERED: LACTATED RINGER'S 1,000 ML IV ONE
[2020-01-10 00:57] LABS: T4 Free Thyroxine 1.54 ng/dl (0.8-1.6)
[2020-01-10] MEDS: IBUPROFEN 200 MG TAB PO SCH ×3 (05:50→19:19)
[2020-01-10] MEDS: LEVOTHYROXINE SODIUM 112 MCG TABLET PO SCH (05:50)
[2020-01-10 06:48] LABS: Basophils # (auto) 0.01 K/uL (0-0.2); Basophils % (auto) 0.1 %; Hematocrit (blood only) 38.9 % (37-47); Hemoglobin 12.9 g/dL (12.0-16.0); Immature Granulocytes # (auto) 0.04 K/uL (0.00-0.02); Immature Granulocytes % (auto) 0.3 %; Lymphocytes # (auto) 1.52 K/uL (1.2-3.4); Lymphocytes % (auto) 10.3 %; Mean Corpuscular Hgb Conc 33.2 g/dL (32-36); Mean Corpuscular Volume 90.5 fL (80-100); Monocytes # (auto) 0.48 K/uL (0.11-0.59); Monocytes % (auto) 3.2 %; Neutrophils # (auto) 12.73 K/uL (1.4-6.5); Neutrophils % (auto) 86.1 %; Platelet Count 340 K/uL (130-400); RDW Coefficient of Variation 13.9 % (11.5-14.5); RDW Standard Deviation 46.1 fL (36.4-46.3); White Blood Count 14.78 K/uL (4.8-10.8)
[2020-01-10 07:31] LABS: BUN Creatinine Ratio 16.8 (10-20); Calcium 8.7 mg/dl (8.5-10.1); Est GFR (Non-African American) 104.4; Potassium 3.8 mmol/L (3.5-5.1)
[2020-01-10] MEDS: MULTIVITAMIN TAB PO SCH ×2 (08:29→20:38)
[2020-01-10] MEDS: KETOROLAC TROMETHAMINE 15 MG/ML VIAL IV PRN ×2 (08:30→21:43)
[2020-01-10] MEDS ORDERED: ENOXAPARIN INJ 30 MG/0.3 ML SYR SQ SCH (09:00)
[2020-01-10] MEDS ORDERED: RIZATRIPTAN BENZOATE 10 MG TAB PO PRN (10:26)
--- NOTE | 2020-01-10 10:39 | Hospitalist Progress Note ---
Date of Service January 10, 2020 Assessment & Plan (1) Acute neck pain: Patient presented with acute localized neck pain, Symptoms been ongoing for 2 to 3 days, no fever, no weakness or paresthesia in upper extremities MRI of cervical spine: Shows acute tendinitis at the longus coli muscle Her symptoms markedly improved after NSAIDs, IV Toradol No complaint of headache, normal range of motion of her neck Continue symptomatic management, PRN NSAIDs, heating pad Patient will benefit with rheumatology follow-up as an outpatient in 3-6 months History of migraine headache, Patient feels experiencing a migraine flare/left frontal headache this morning Usually takes Maxalt as needed, ordered Leukocytosis: Possible secondary to inflammation?, No sign of infection noted White count improved [id number] today, repeat labs in the a.m. Patient did receive IV Decadron in the ER CODE STATUS: Full code DVT prophylaxis: Low risk patient is very active his baseline, encouraged to be out of bed and ambulate Disposition: Plan to discharge home possible tomorrow if neck pain/symptoms improves Text document was generated using [employer] voice recognition software. It may contain grammatical or spelling errors. Kindly contact undersigned for clarification of any documentation item in question. Admission and Anticipated Discharge Date Admission Date: January 09, 2020 Subjective Patient reports of significant improvement of her neck pain this morning Able to turn her head, bend neck without any pain or discomfort No problem in swallowing, did well with clear liquid diet, feels hungry, okay to advance diet to solid/to regular No fever or chills, Does not have any cough, no shortness of breath, no body aches Review of Systems Constitutional: no fever, no chills, no body aches, no fatigue, no malaise and no weakness Eyes: no diplopia, no photophobia and no problem reported Ear, Nose, Mouth, Throat: + problem reported; no dizziness, no dysphagia and no pain with swallowing No complaint of neck pain Respiratory: no cough, no dyspnea and no wheezing Cardiovascular: + chest pain; no palpitations Musculoskeletal: + stiffness (No neck stiffness); no neck pain, no joint pain and no body aches Physical Exam Constitutional: WD/WN, vitals as above well developed; no acute distress Eyes: PERRL, conjunctivae normal, anicteric sclerae ENMT: external ear and nose normal, oropharynx normal Neck: trachea midline, no thyromegaly No neck pain, normal range of motion of neck and cervical spine, mild tenderness on bilateral cervical spine with palpation, no overlying skin erythema no increased warmth noted Respiratory: normal respiratory effort, lungs clear to auscultation Cardiovascular: RRR, no murmur, no edema Gastrointestinal (Abdomen): normal bowel sounds, soft, nontender, no h epatosplenomegaly Musculoskeletal: no cyanosis or clubbing, extremities motor strength 5/5 Head/Neck/Chest: + abnormal head shape and + evidence of head trauma Spine: normal cervical ROM Normal range of motion of neck/cervical spine Skin: no rashes, warm and dry Neurologic: PERRL, EOMI, accommodation nl, no face palsy, no dysarthria Psychiatric: A+Ox3, euthymic affect Results & Data ([facility]) Vital Signs (Past 12 Hours) Vital Signs Temp Pulse Pulse Resp BP BP Pulse Ox 01/10/20 07:23 36.5 C 95 H 20 124/77 94 01/10/20 07:18 96 H 01/10/20 03:15 36.5 C 95 H 18 106/70 96 01/10/20 00:00 36.7 C 89 18 88/65 L 93 01/09/20 23:59 83 01/09/20 22:42 84/61 L Diagnostic Findings Soft tissue neck CT: Mild retropharyngeal soft tissue edema, likely secondary to calcific tendinitis of the longus coli muscle Chest CT: 1. No acute intrathoracic findings 2. No evidence of acute pulmonary embolism 3. No evidence of focal pulmonary consolidation Cervical spine MRI: 1. Findings indicative of acute tendinitis the longus coli muscle 2. Multilevel spondylytic changes as described above EKG as per my interpretation:Rate 100, NSR, normal axis, nonspecific T wave abnormalities
[2020-01-10 11:39] LABS: iSTAT Creatinine 0.5 mg/dl (0.6-1.3); iSTAT Hemoglobin 15.3 g/dl (12.0-16.0); iSTAT Ionized Calcium 1.15 mmol/l (1.12-1.32); iSTAT Potassium 3.7 mmol/L (3.3-5.0)
--- NOTE | 2020-01-10 15:29 | Electrocardiogram Report ---
Test Reason : Blood Pressure : / mmHG Vent. Rate : 097 BPM Atrial Rate : 097 BPM P-R Int : 166 ms QRS Dur : 082 ms QT Int : 360 ms P-R-T Axes : 051 033 045 degrees QTc Int : 457 ms Normal sinus rhythm Nonspecific ST and T wave abnormality Abnormal ECG When compared with ECG of 09-JAN-2020 17:20, No significant change Confirmed by Logan Kaufman ([id number]) on 01/10/2020 3:29:10 PM Referred By: REFERRED SELF Confirmed By:Logan Kaufman
[2020-01-10] MEDS ORDERED: CYCLOBENZAPRINE HCL 10 MG TAB PO STA (17:40)
[2020-01-10] MEDS ORDERED: CYCLOBENZAPRINE HCL 10 MG TAB PO PRN (17:41)
[2020-01-10] MEDS ORDERED: NON-FORMULARY MEDICATION (Glucosamine-Chondroitin 1 CAP) PO SCH (21:00)
[2020-01-10] MEDS ORDERED: ATORVASTATIN 10 MG TAB PO SCH (21:00)
[2020-01-11] MEDS: IBUPROFEN 200 MG TAB PO SCH ×3 (00:01→11:48)
[2020-01-11 05:51] LABS: Hematocrit (blood only) 36.9 % (37-47); Mean Corpuscular Hemoglobin 29.6 pg (25-34); Mean Corpuscular Hgb Conc 32.5 g/dL (32-36); Mean Corpuscular Volume 91.1 fL (80-100); Mean Platelet Volume 9.8 fL (7.4-10.4); Platelet Count 343 K/uL (130-400); RDW Coefficient of Variation 14.2 % (11.5-14.5); Red Blood Count 4.05 M/uL (4.2-5.4)
[2020-01-11 06:18] LABS: Basophils # (auto) 0.04 K/uL (0-0.2); Basophils % (auto) 0.2 %; Eosinophils # (auto) 0.03 K/uL (0-0.5); Eosinophils % (auto) 0.2 %; Immature Granulocytes # (auto) 0.06 K/uL (0.00-0.02); Immature Granulocytes % (auto) 0.4 %; Lymphocytes # (auto) 5.01 K/uL (1.2-3.4); Lymphocytes % (auto) 29.3 %; Monocytes # (auto) 1.03 K/uL (0.11-0.59); Neutrophils # (auto) 10.93 K/uL (1.4-6.5); Neutrophils % (auto) 63.9 %
[2020-01-11] MEDS: LEVOTHYROXINE SODIUM 112 MCG TABLET PO SCH (06:18)
[2020-01-11] MEDS: MULTIVITAMIN TAB PO SCH (08:01)
[2020-01-11] MEDS ORDERED: predniSONE 20 MG TAB PO SCH (09:00)
[2020-01-11] MEDS ORDERED: ACAI BERRY EXTRACT PO SCH (09:00)
[2020-01-11] MEDS ORDERED: NON-FORMULARY MEDICATION (Lutein 6 MG) PO SCH (09:00)
[2020-01-11] MEDS ORDERED: NON-FORMULARY MEDICATION (Coq10 (Ubiquinol) 100 MG) PO SCH (09:00)
--- NOTE | 2020-01-11 13:58 | Hospitalist Progress Note ---
Date of Service January 11, 2020 Assessment & Plan (1) Acute neck pain: Possible neck muscle inflammation:/Acute Tendinitis at the Longus Coli Muscle Symptom improved with NSAIDs: Motrin muscle relaxants and oral steroids Patient presented with acute localized neck pain, Symptoms been ongoing for 2 to 3 days, no fever, no weakness or paresthesia in upper extremities MRI of cervical spine: Shows Acute Tendinitis at the Longus Coli Muscle No complaint of headache, normal range of motion of her neck Stable to be discharged home today Leukocytosis: Possible secondary to inflammation?, No sign of infection noted Received IV Decadron in ER WBC elevated to 17,000 today no fever chills no discomfort Stable to be discharged home today, patient will be discharged with Medrol Dosepak Repeat CBC in outpatient in 2 to 3 days after completion of steroids CODE STATUS: Full code DVT prophylaxis: Low risk patient is very active his baseline, encouraged to be out of bed and ambulate Disposition: Stable to be discharged home today Text document was generated using [employer] voice recognition software. It may contain grammatical or spelling errors. Kindly contact undersigned for clarification of any documentation item in question. Admission and Anticipated Discharge Date Admission Date: January 09, 2020 Subjective Patient is much better today, improvement of neck pain neck stiffness Required muscle relaxant Flexeril only 1 time today, No fever or chills, Eager to be discharged home today Review of Systems Review of Systems: All systems reviewed & are unremarkable except as noted in HPI & below Musculoskeletal: no neck pain Physical Exam Constitutional: WD/WN, vitals as above well developed; no acute distress Eyes: PERRL, conjunctivae normal, anicteric sclerae ENMT: external ear and nose normal, oropharynx normal Neck: trachea midline, no thyromegaly Respiratory: normal respiratory effort, lungs clear to auscultation Cardiovascular: RRR, no murmur, no edema Gastrointestinal (Abdomen): normal bowel sounds, soft, nontender, no hepatosplenomegaly Musculoskeletal: no cyanosis or clubbing, extremities motor strength 5/5 Head/Neck/Chest: + abnormal head shape and + evidence of head trauma Spine: normal cervical ROM Skin: no rashes, warm and dry Neurologic: PERRL, EOMI, accommodation nl, no face palsy, no dysarthria Psychiatric: A+Ox3, euthymic affect Results & Data ([facility]) Vital Signs (Past 12 Hours) Vital Signs Temp Pulse Resp BP BP Pulse Ox 01/11/20 11:59 37.0 C 80 18 105/70 108/72 97 01/11/20 07:34 37.0 C 80 18 105/70 97 01/11/20 04:08 36.8 C 82 18 108/72 97
--- NOTE | 2020-01-11 18:42 | Discharge Summary ---
Date of Service January 11, 2020 Admission HPI Per Admitting Provider History obtained from patient and records. Medical history significant for hypothyroidism, fatty liver as per records. Few days history of achy posterior neck pain worse with motion without radiation to the arms or arm/leg weakness, bowel/bladder incontinence. No fever, no chills. Patient because uncomfortable sitting position during a 5-hour car travel last week. No recollection of recent trauma. No headache. No chest pain, no S OB. No fever, no chills. Patient also noted dysphagia symptoms. No prior episodes in the past. At the ER, patient received Decadron, Zosyn and Daptomycin. 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 Principal Diagnosis Neck pain/inflammation of neck muscle Discharge Exam Constitutional WD/WN, vitals as above well developed; no acute distress Eyes PERRL, conjunctivae normal, anicteric sclerae ENMT external ear and nose normal, oropharynx normal Neck trachea midline, no thyromegaly Respiratory normal respiratory effort, lungs clear to auscultation Cardiovascular RRR, no murmur, no edema Gastrointestinal (Abdomen) normal bowel sounds, soft, nontender, no hepatosplenomegaly Musculoskeletal no cyanosis or clubbing, extremities motor strength 5/5 Head/Neck/Chest: + abnormal head shape and + evidence of head trauma Spine: normal cervical ROM Skin no rashes, warm and dry Neurologic PERRL, EOMI, accommodation nl, no face palsy, no dysarthria Psychiatric A+Ox3, euthymic affect Discharge Data Allergies Allergy/AdvReac Type Severity Reaction Status Date / Time aspartame Allergy Unknown Verified 01/10/20 10:26 monosodium glutamate Allergy Unknown Verified 01/10/20 10:26 Consultations 01/09/20 19:29 ED Decision to Admit Stat Ordered Studies 01/09/20 16:31 CT soft tissue neck w con Stat 01/09/20 17:23 CT angio chest PE protocol Stat 01/09/20 20:05 MR cervical spine wo/w con Urgent Hospital Course (1) Acute neck pain: Possible neck muscle inflammation:/Acute Tendinitis at the [place] Muscle Symptom improved with NSAIDs: Motrin muscle relaxants and oral steroids Patient presented with acute localized neck pain, Symptoms been ongoing for 2 to 3 days, no fever, no weakness or paresthesia in upper extremities MRI of cervical spine: Shows Acute Tendinitis at the [place] Muscle No complaint of headache, normal range of motion of her neck Stable to be discharged home today Leukocytosis: Possible secondary to inflammation?, No sign of infection noted Received IV Decadron in ER WBC elevated to 17,000 today no fever chills no discomfort Stable to be discharged home today, patient will be discharged with Medrol Dosepak Repeat CBC in outpatient in 2 to 3 days after completion of steroids CODE STATUS: Full code DVT prophylaxis: Low risk patient is very active his baseline, encouraged to be out of bed and ambulate Disposition: Stable to be discharged home today Text document was generated using [employer] voice recognition software. It may contain grammatical or spelling errors. Kindly contact undersigned for clarification of any documentation item in question. Total Time Total Time Spent Total Time Spent (In Minutes): 35 minutes Total Time Includes: Examination of the Patient, Discharge Planning and Medication Reconciliation Discharge Plan Discharge Items Patient Disposition: Home - Self-Care Reason For Visit: NECK PAIN, TACHYCARDIA Discharge Diagnosis: Neck pain/inflammation of neck muscle Condition on Discharge: Good Activity: Resume your previous activity Non-emergency contact: Primary Care Provider Call non-emergency contact if: you have any medication questions Follow-up/Referrals: Daniel Alberto MD [Primary Care Provider] - 01/17/20 11:05 am Diet: Regular Ambulatory Orders: Complete Blood Count no Diff (Routine) Timeframe: 1 Week Location: Determined by Patient Ordered By: Luzma Cruz Attending Provider Instructions: Repeat lab work: Complete blood count in 1 week New medications: 1.Ibuprofen 600 mg take 1 tablet every 8 hours as needed for neck pain-please take with food/after meal Increased risk of severe acid reflux while taking an empty stomach 2. Medrol Dosepaksteroidtake as directed 3. Flexeril/cyclobenzaprine 10 mg take 1 tablet by mouth every 6 hours as needed for neck stiffness/muscle spasm 4. Take omeprazole 20 mg daily for 2 weeks-limit acid reflux While taking combination of ibuprofen and Medrol Dosepak Can use heating/cold pack as needed for symptom relief Please notify your family physician, if your pain is worse or you develop any fever Pending Studies at Discharge: No Stand-Alone Forms: My [facility], Smoking Cessation Medications and DC Order Prescriptions: New cyclobenzaprine 10 mg Tablet 10 mg PO Q6 PRN (Reason: muscle spasm) Qty: 60 RF: 0 methylprednisolone [Medrol (Nate)] 4 mg tablets,dose pack 4 mg PO UD Qty: 21 RF: 0 ibuprofen [IBU] 600 mg tablet 600 mg PO Q8H PRN (Reason: pain) Qty: 30 RF: 1 omeprazole 20 mg PO DAILY Qty: 14 RF: 0 Continued atorvastatin 10 mg tablet 10 mg PO QPM RF: 0 levothyroxine 112 mcg capsule 112 mcg PO QAM RF: 0 multivitamin [Daily Multi-Vitamin] Tablet 1 tab PO BID RF: 0 acai bui extract 500 mg capsule 0 mg PO DAILY RF: 0 coQ10 (ubiquinol) 100 mg capsule 100 mg PO DAILY RF: 0 lutein 6 mg capsule 6 mg PO QAM RF: 0 glucosamine-chondroitin 500-400 mg Capsule 1 cap PO BID RF: 0 Discharge Orders: Discharge Order (Routine); Ordered 01/11/20 Ordered By: Luzma Orta Admission Data Admit Date/Time: 01/09/20 22:01 Attending Provider: Luzma Orta Admit Provider: Papo Witt Primary Care Provider: Daniel Alberto Other Providers: Papo Witt Other Interventions: Discharge Summary Assessment (RN) Last Done: 01/11/20 11:59 DC Date/Time DO NOT enter until pt leaves facility: 01/11/20 14:03
== END 2020-01-11 14:03 | disposition home or self-care (01) ==
LOC: 2N 15:54 → ED 15:54 → 2N 22:42